=== PATIENT | male | born 1990 | race African-American/Black ===

== ENCOUNTER 2017-01-20 17:15 | Emergency (ER) | payer MEDICARE, OTHER ==
[~2017-01-20] VITALS: Ht 144.8 cm; Wt 95.0 kg
[~2017-01-20 17:15] MED LIST: ATOR10TA84 PO; DIVA500T69 PO; FERS325 PO; FLUO-191 PO; FLUT16H NASAL; FLUT1BLS IH; FOLI1 PO; METF500T4 PO; MIRALAX PO; MULT-29 PO; OMEP20 PO; QUET200T PO; THIA100 PO; VITAD1000 PO
[2017-01-20 17:37] LABS: GLUCOSE,POINT OF CARE 86 MG/DL (70-110)
[2017-01-20 20:13] VITALS: BP 118/61
== END 2017-01-20 20:24 | disposition home or self-care (01) ==
LOC: EMS 17:17
DX: F20.9 Schizophrenia, unspecified (principal); J45.909 Unspecified asthma, uncomplicated; E11.9 Type 2 diabetes mellitus without complications
CPT/HCPCS: 82962; 99284

== ENCOUNTER 2017-07-15 14:35 | Emergency (ER) | payer MEDICARE, OTHER ==
[~2017-07-15] VITALS: Ht 142.2 cm; Wt 63.6 kg
[~2017-07-15 14:35] MED LIST changes: +FERR-89 PO; -FERS325 PO
[2017-07-15 14:55] VITALS: BP 130/76
[2017-07-15 15:02] LABS: GLUCOSE,POINT OF CARE 122 MG/DL (70-110)
[2017-07-15] MEDS ORDERED: DSS100 PO (17:08)
[2017-07-15] MEDS ORDERED: LEVO25TA9 PO (17:08)
[2017-07-15] MEDS ORDERED: LORazepam 1 MG TABLET PO ONE (17:15)
== END 2017-07-15 17:32 | disposition home or self-care (01) ==
LOC: EMS 14:37
DX: F20.9 Schizophrenia, unspecified (principal)
CPT/HCPCS: 82962; 99284

== ENCOUNTER 2018-06-01 17:18 | Emergency (ER) | payer MEDICARE, OTHER ==
[~2018-06-01] VITALS: Ht 142.2 cm; Wt 56.8 kg
[~2018-06-01 17:18] MED LIST changes: +DSS100 PO; -FLUO-191 PO; -FLUT1BLS IH; -FOLI1 PO; +LEVO25TA9 PO; -METF500T4 PO; +METF500T6 PO; -MIRALAX PO; -MULT-29 PO; -THIA100 PO
[2018-06-01] MEDS ORDERED: FLUO-191 PO (17:30)
[2018-06-01] MEDS ORDERED: PALI117D IM (17:30)
[2018-06-01] MEDS ORDERED: BENZ0.5T44 PO (17:30)
[2018-06-01] MEDS ORDERED: EXEN2PEN IM (17:30)
[2018-06-01 17:43] LABS: GLUCOSE,POINT OF CARE 77 MG/DL (70-110)
[2018-06-01] MEDS ORDERED: GuaiFENesin/D-METHORPHAN [SUGAR-FREE] 200-20MG/10 ML SYRUP UDCUP PO ONE (20:00)
[2018-06-01] MEDS ORDERED: ACETAMINOPHEN 325 MG TABLET PO ONE (20:00)
[2018-06-01 20:39] VITALS: BP 131/72
== END 2018-06-01 21:20 | disposition home or self-care (01) ==
LOC: EMS 17:19
DX: J06.9 Acute upper respiratory infection, unspecified (principal); J45.909 Unspecified asthma, uncomplicated; E11.9 Type 2 diabetes mellitus without complications; F20.9 Schizophrenia, unspecified; F79 Unspecified intellectual disabilities; Z79.899 Other long term (current) drug therapy
CPT/HCPCS: 99283

== ENCOUNTER 2018-06-06 17:33 | Inpatient (IN) | payer MEDICARE, MEDICAID ==
[~2018-06-06] VITALS: Ht 142.2 cm; Wt 59.0 kg
[~2018-06-06 17:33] MED LIST changes: +BENZ0.5T44 PO; +EXEN2PEN IM; +FLUO-191 PO; -FLUT16H NASAL; -METF500T6 PO; +PALI117D IM; -VITAD1000 PO
[2018-06-06 19:04] LABS: BASOPHILS % (AUTO) 0.4 % (0.0-2.0); EOSINOPHILS % (AUTO) 0.9 % (1.0-6.0); GLUCOSE,POINT OF CARE 88 MG/DL (70-110); HEMATOCRIT 43.8 % (41-53); HEMOGLOBIN 15.1 g/dL (13.5-17.5); LYMPHOCYTES # (AUTO) 2.5 K/uL (1.0-4.8); LYMPHOCYTES % (AUTO) 44.7 % (22.0-44.0); MEAN CORPUSCULAR HEMOGLOBIN 33.8 pg (26.0-34.0); MEAN CORPUSCULAR HGB CONC 34.6 G/dL (31.0-37.0); MEAN CORPUSCULAR VOLUME 98 fL (80-100); MONOCYTES # (AUTO) 0.6 K/uL (0.1-1.0); MONOCYTES % (AUTO) 10.5 % (2.0-9.0); NEUTROPHILS # (AUTO) 2.4 K/uL (1.8-7.7); NEUTROPHILS % (AUTO) 43.5 % (40.0-70.0); PLATELET COUNT (AUTO) 164 K/uL (150-450); RED BLOOD CELL COUNT(AUTO) 4.47 MIL/uL (4.50-5.90); RED CELL DISTRIBUTION WIDTH 13.7 % (11.5-14.5)
[2018-06-06 19:15] LABS: ANION GAP 10 mmol/L (8-16); CALCIUM, TOTAL 9.6 mg/dL (8.8-10.5); CARBON DIOXIDE 26 mmol/L (22-29); CHLORIDE 104 mmol/L (98-107); CREATININE 1.06 mg/dL (0.60-1.30); GLOMERULAR FILTR. RATE CALC > 60 mL/min (>60); GLUCOSE,RANDOM 83 mg/dL (70-110); POTASSIUM 4.1 mmol/L (3.5-5.1); SODIUM SERUM 140 mmol/L (136-145); UREA NITROGEN, BLOOD 23 mg/dL (7-18)
[2018-06-06 19:28] LABS: ALANINE AMINOTRANSFERASE 55 U/L (12-78); ALBUMIN 3.8 g/dL (3.4-5.0); ALKALINE PHOSPHATASE 50 U/L (46-116); ASPARTATE AMINOTRANSFERASE 45 U/L (15-37); BILIRUBIN,TOTAL 0.3 mg/dL (0.1-1.0); TOTAL PROTEIN, SERUM 7.8 g/dL (6.4-8.2)
[2018-06-06 19:50] LABS: AMPHET/METH SCREEN,URINE NEGATIVE (NEGATIVE); BARBITURATE SCREEN, URINE NEGATIVE (NEGATIVE); BENZODIAZEPINES SCREEN,URINE NEGATIVE (NEGATIVE); CANNABINOID SCREEN,URINE NEGATIVE (NEGATIVE); COCAINE SCREEN,URINE NEGATIVE (NEGATIVE); METHADONE SCREEN, URINE NEGATIVE (NEGATIVE); OPIATE SCREEN,URINE NEGATIVE (NEGATIVE); PHENCYCLIDINE SCREEN,URINE NEGATIVE (NEGATIVE)
[2018-06-06 20:13] LABS: VALPROIC ACID 83 mcg/mL (50-100)
[2018-06-06] MEDS ORDERED: ZOLPIDEM TARTRATE 10 MG TABLET PO PRN (21:00)
[2018-06-06] MEDS ORDERED: HALOPERIDOL 5 MG TABLET PO PRN (21:00)
[2018-06-06 21:41] LABS: APPEARANCE,URINE CLEAR (CLEAR); BILIRUBIN,URINE NEGATIVE (NEGATIVE); GLUCOSE, URINE (UA) NEGATIVE (NEGATIVE); KETONES,URINE NEGATIVE (NEGATIVE); LEUKOCYTE ESTERASE ,URINE NEGATIVE (NEGATIVE); NITRATE,URINE NEGATIVE (NEGATIVE); OCCULT BLOOD,URINE NEGATIVE (NEGATIVE); PH,URINE 7.5 (5.0-8.0); PROTEIN,URINE NEGATIVE (NEGATIVE)
[2018-06-06 22:23] LABS: GLUCOMETER DEV NAME(LOC) BV2N3; GLUCOSE,POINT OF CARE 79 MG/DL (70-110)
[2018-06-06 22:28] VITALS: BP 109/68
[2018-06-06] MEDS ORDERED: PNEUMOCOCCAL VACCINE POLYVALENT 0.5 ML VIAL [PPSV23] IM ONE (22:30)
[2018-06-07 00:50] VITALS: BP 105/64
[2018-06-07 06:48] LABS: GLUCOMETER DEV NAME(LOC) BV2N3; GLUCOSE,POINT OF CARE 80 MG/DL (70-110)
[2018-06-07 08:14] VITALS: BP 116/77
[2018-06-07] MEDS: LORazepam 2 MG TABLET PO PRN (08:58)
[2018-06-07] MEDS ORDERED: CloNIDine HCL 0.1 MG TABLET PO PRN (09:15)
[2018-06-07] MEDS ORDERED: MAG HYDROX/AL HYDROX/SIMETH ES 30 ML SUSPENSION UDCUP PO PRN (09:15)
[2018-06-07] MEDS ORDERED: ALBUTEROL SULFATE HFA 90 MCG/PUFF 8 GM INHALER IH PRN (09:15)
[2018-06-07] MEDS ORDERED: PETROLATUM,WHITE 71 GM JELLY TP PRN (09:15)
[2018-06-07] MEDS ORDERED: MAGNESIUM HYDROXIDE SUSPENSION 30 ML UDCUP PO PRN (09:15)
[2018-06-07] MEDS ORDERED: BENZOCAINE/MENTHOL LOZENGE MM PRN (09:15)
[2018-06-07] MEDS ORDERED: LOPERAMIDE HCL 2 MG CAPSULE PO PRN (09:15)
[2018-06-07] MEDS ORDERED: IBUPROFEN 600 MG TABLET PO PRN (09:15)
[2018-06-07] MEDS ORDERED: ACETAMINOPHEN 325 MG TABLET PO PRN (09:15)
[2018-06-07] MEDS ORDERED: ONDANSETRON HCL 4 MG TABLET PO PRN (09:15)
[2018-06-07] MEDS ORDERED: BACITRACIN 28.4 GM OINTMENT TP PRN (09:15)
[2018-06-07 09:25] LABS: CHOL/HDL RATIO 2.8 (4.2-7.3)
[2018-06-07] MEDS: OMEPRAZOLE 20 MG CAPSULE PO SCH (09:35)
[2018-06-07] MEDS: FLUoxetine HCL 20 MG CAPSULE PO SCH (13:13)
[2018-06-07 16:06] VITALS: BP 108/60
[2018-06-07] MEDS: QUEtiapine FUMARATE 300 MG TABLET PO SCH (20:40)
[2018-06-07] MEDS: DIVALPROEX SODIUM 500 MG ER TABLET PO SCH (20:40)
[2018-06-07] MEDS ORDERED: QUEtiapine FUMARATE 200 MG TABLET PO SCH (21:00)
[2018-06-08 01:36] VITALS: BP 111/64
[2018-06-08] MEDS: LEVOTHYROXINE SODIUM 25 MCG TABLET PO SCH (07:11)
[2018-06-08 08:33] VITALS: BP 109/67
[2018-06-08] MEDS: ATORVASTATIN CALCIUM 10 MG TABLET PO SCH (08:35)
[2018-06-08] MEDS: OMEPRAZOLE 20 MG CAPSULE PO SCH (08:35)
[2018-06-08] MEDS: DOCUSATE SODIUM 100 MG CAPSULE PO SCH (08:35)
[2018-06-08] MEDS: FLUoxetine HCL 20 MG CAPSULE PO SCH (08:36)
[2018-06-08 16:11] VITALS: BP 114/80
[2018-06-08] MEDS: QUEtiapine FUMARATE 300 MG TABLET PO SCH (20:36)
[2018-06-08] MEDS: DIVALPROEX SODIUM 500 MG ER TABLET PO SCH (20:36)
[2018-06-09 01:26] VITALS: BP 108/76
[2018-06-09] MEDS: LEVOTHYROXINE SODIUM 25 MCG TABLET PO SCH (06:42)
[2018-06-09 08:30] VITALS: BP 103/72
[2018-06-09] MEDS: DOCUSATE SODIUM 100 MG CAPSULE PO SCH (08:54)
[2018-06-09] MEDS: ATORVASTATIN CALCIUM 10 MG TABLET PO SCH (08:54)
[2018-06-09] MEDS: OMEPRAZOLE 20 MG CAPSULE PO SCH (08:54)
[2018-06-09] MEDS: FLUoxetine HCL 20 MG CAPSULE PO SCH (08:54)
[2018-06-09] MEDS ORDERED: HALOPERIDOL LACTATE 5 MG/ML VIAL ONE (13:19)
[2018-06-09] MEDS ORDERED: DiphenhydrAMINE HCL 50 MG/ML VIAL ONE (13:19)
[2018-06-09] MEDS ORDERED: LORazepam 2 MG/ML VIAL ONE (13:19)
[2018-06-09 16:21] VITALS: BP 116/60
[2018-06-09 19:07] VITALS: BP 119/72
[2018-06-09] MEDS: DIVALPROEX SODIUM 500 MG ER TABLET PO SCH (20:38)
[2018-06-09] MEDS: QUEtiapine FUMARATE 300 MG TABLET PO SCH (20:38)
[2018-06-10 00:05] VITALS: BP 105/62
[2018-06-10] MEDS: LEVOTHYROXINE SODIUM 25 MCG TABLET PO SCH (06:41)
[2018-06-10 08:30] VITALS: BP 114/74
[2018-06-10] MEDS: FLUoxetine HCL 20 MG CAPSULE PO SCH (08:37)
[2018-06-10] MEDS: ATORVASTATIN CALCIUM 10 MG TABLET PO SCH (08:37)
[2018-06-10] MEDS: DOCUSATE SODIUM 100 MG CAPSULE PO SCH (08:37)
[2018-06-10] MEDS: OMEPRAZOLE 20 MG CAPSULE PO SCH (08:37)
[2018-06-10 16:05] VITALS: BP 114/73
[2018-06-10] MEDS: DIVALPROEX SODIUM 500 MG ER TABLET PO SCH (20:02)
[2018-06-10] MEDS: QUEtiapine FUMARATE 300 MG TABLET PO SCH (20:02)
[2018-06-11] MEDS: LEVOTHYROXINE SODIUM 25 MCG TABLET PO SCH (06:05)
[2018-06-11 06:53] VITALS: BP 109/63
[2018-06-11 08:16] VITALS: BP 102/61
[2018-06-11] MEDS: DOCUSATE SODIUM 100 MG CAPSULE PO SCH (08:48)
[2018-06-11] MEDS: ATORVASTATIN CALCIUM 10 MG TABLET PO SCH (08:48)
[2018-06-11] MEDS: FLUoxetine HCL 20 MG CAPSULE PO SCH (08:48)
[2018-06-11] MEDS: OMEPRAZOLE 20 MG CAPSULE PO SCH (08:48)
[2018-06-11 16:00] VITALS: BP 120/66
[2018-06-11 20:08] LABS: GLUCOMETER DEV NAME(LOC) BV2N3; GLUCOSE,POINT OF CARE 128 MG/DL (70-110)
[2018-06-11] MEDS: QUEtiapine FUMARATE 300 MG TABLET PO SCH (20:34)
[2018-06-11] MEDS: DIVALPROEX SODIUM 500 MG ER TABLET PO SCH (20:34)
[2018-06-12 02:45] VITALS: BP 122/78
[2018-06-12] MEDS: LEVOTHYROXINE SODIUM 25 MCG TABLET PO SCH (06:49)
[2018-06-12] MEDS: FLUoxetine HCL 20 MG CAPSULE PO SCH (08:19)
[2018-06-12] MEDS: DOCUSATE SODIUM 100 MG CAPSULE PO SCH (08:19)
[2018-06-12] MEDS: ATORVASTATIN CALCIUM 10 MG TABLET PO SCH (08:19)
[2018-06-12] MEDS: OMEPRAZOLE 20 MG CAPSULE PO SCH (08:19)
[2018-06-12 09:11] VITALS: BP 105/68
[2018-06-12 09:12] LABS: ALANINE AMINOTRANSFERASE 37 U/L (12-78); ALBUMIN 3.1 g/dL (3.4-5.0); ALKALINE PHOSPHATASE 44 U/L (46-116); ANION GAP 8 mmol/L (8-16); ASPARTATE AMINOTRANSFERASE 25 U/L (15-37); BILIRUBIN,TOTAL 0.2 mg/dL (0.1-1.0); CALCIUM, TOTAL 8.8 mg/dL (8.8-10.5); CARBON DIOXIDE 28 mmol/L (22-29); CHLORIDE 107 mmol/L (98-107); GLOMERULAR FILTR. RATE CALC > 60 mL/min (>60); GLUCOSE,RANDOM 110 mg/dL (70-110); POTASSIUM 4.4 mmol/L (3.5-5.1); SODIUM SERUM 143 mmol/L (136-145); TOTAL PROTEIN, SERUM 6.3 g/dL (6.4-8.2); UREA NITROGEN, BLOOD 10 mg/dL (7-18)
[2018-06-12] MEDS: LORazepam 2 MG TABLET PO PRN (16:13)
[2018-06-12 16:18] VITALS: BP 116/78
[2018-06-12] MEDS: DIVALPROEX SODIUM 500 MG ER TABLET PO SCH (20:36)
[2018-06-12] MEDS: QUEtiapine FUMARATE 300 MG TABLET PO SCH (20:36)
[2018-06-13 06:07] VITALS: BP 112/66
[2018-06-13] MEDS: LEVOTHYROXINE SODIUM 25 MCG TABLET PO SCH (06:58)
[2018-06-13 08:18] VITALS: BP 125/61
[2018-06-13] MEDS: ATORVASTATIN CALCIUM 10 MG TABLET PO SCH (09:19)
[2018-06-13] MEDS: OMEPRAZOLE 20 MG CAPSULE PO SCH (09:19)
[2018-06-13] MEDS: DOCUSATE SODIUM 100 MG CAPSULE PO SCH (09:19)
[2018-06-13] MEDS: FLUoxetine HCL 20 MG CAPSULE PO SCH (09:19)
[2018-06-13] MEDS: LORazepam 2 MG TABLET PO PRN (14:41)
[2018-06-13 17:06] VITALS: BP 113/74
[2018-06-13] MEDS: DIVALPROEX SODIUM 500 MG ER TABLET PO SCH (20:30)
[2018-06-13] MEDS: QUEtiapine FUMARATE 300 MG TABLET PO SCH (20:30)
[2018-06-14 00:10] VITALS: BP 103/64
[2018-06-14] MEDS: LEVOTHYROXINE SODIUM 25 MCG TABLET PO SCH (06:38)
[2018-06-14] MEDS: ATORVASTATIN CALCIUM 10 MG TABLET PO SCH (08:14)
[2018-06-14] MEDS: OMEPRAZOLE 20 MG CAPSULE PO SCH (08:14)
[2018-06-14] MEDS: DOCUSATE SODIUM 100 MG CAPSULE PO SCH (08:14)
[2018-06-14] MEDS: FLUoxetine HCL 20 MG CAPSULE PO SCH (08:14)
[2018-06-14 08:31] VITALS: BP 120/89
[2018-06-14] MEDS: LORazepam 2 MG TABLET PO PRN (09:27)
[2018-06-14] MEDS ORDERED: GLUCAGON,HUMAN RECOMBINANT 1 MG VIAL IM PRN (11:45)
[2018-06-14 16:06] VITALS: BP 120/74
[2018-06-14 16:24] LABS: GLUCOMETER DEV NAME(LOC) BV2N3; GLUCOSE,POINT OF CARE 84 MG/DL (70-110)
[2018-06-14] MEDS: MetFORMIN HCL 500 MG TABLET PO SCH (16:33)
[2018-06-14 20:31] LABS: GLUCOMETER DEV NAME(LOC) BV2N3; GLUCOSE,POINT OF CARE 171 MG/DL (70-110)
[2018-06-14] MEDS: QUEtiapine FUMARATE 300 MG TABLET PO SCH (20:42)
[2018-06-14] MEDS: DIVALPROEX SODIUM 500 MG ER TABLET PO SCH (20:42)
[2018-06-14] MEDS: INSULIN LISPRO 100 UNITS/ML SQ PRN (20:43)
[2018-06-15 01:39] VITALS: BP 102/65
[2018-06-15] MEDS: LEVOTHYROXINE SODIUM 25 MCG TABLET PO SCH (06:24)
[2018-06-15] MEDS: MetFORMIN HCL 500 MG TABLET PO SCH ×2 (06:24→16:37)
[2018-06-15 06:51] LABS: GLUCOMETER DEV NAME(LOC) BV2N3; GLUCOSE,POINT OF CARE 72 MG/DL (70-110)
[2018-06-15 08:22] VITALS: BP 120/61
[2018-06-15] MEDS: DOCUSATE SODIUM 100 MG CAPSULE PO SCH (08:35)
[2018-06-15] MEDS: ATORVASTATIN CALCIUM 10 MG TABLET PO SCH (08:35)
[2018-06-15] MEDS: OMEPRAZOLE 20 MG CAPSULE PO SCH (08:35)
[2018-06-15] MEDS: FLUoxetine HCL 20 MG CAPSULE PO SCH (08:35)
[2018-06-15 11:32] LABS: GLUCOMETER DEV NAME(LOC) BV2N3; GLUCOSE,POINT OF CARE 102 MG/DL (70-110)
[2018-06-15 16:11] VITALS: BP 108/68
[2018-06-15 16:23] LABS: GLUCOMETER DEV NAME(LOC) BV2N3; GLUCOSE,POINT OF CARE 81 MG/DL (70-110)
[2018-06-15 20:18] LABS: GLUCOMETER DEV NAME(LOC) BV2N3; GLUCOSE,POINT OF CARE 87 MG/DL (70-110)
[2018-06-15] MEDS: DIVALPROEX SODIUM 500 MG ER TABLET PO SCH (20:45)
[2018-06-15] MEDS: QUEtiapine FUMARATE 300 MG TABLET PO SCH (20:45)
[2018-06-16] MEDS: MetFORMIN HCL 500 MG TABLET PO SCH ×2 (06:03→16:36)
[2018-06-16] MEDS: LEVOTHYROXINE SODIUM 25 MCG TABLET PO SCH (06:03)
[2018-06-16 06:24] VITALS: BP 104/60
[2018-06-16 06:35] LABS: GLUCOMETER DEV NAME(LOC) BV2N3; GLUCOSE,POINT OF CARE 65 MG/DL (70-110)
[2018-06-16] MEDS: DOCUSATE SODIUM 100 MG CAPSULE PO SCH (08:11)
[2018-06-16] MEDS: OMEPRAZOLE 20 MG CAPSULE PO SCH (08:11)
[2018-06-16] MEDS: ATORVASTATIN CALCIUM 10 MG TABLET PO SCH (08:11)
[2018-06-16] MEDS: FLUoxetine HCL 20 MG CAPSULE PO SCH (08:11)
[2018-06-16 08:15] VITALS: BP 120/75
[2018-06-16] MEDS: INSULIN LISPRO 100 UNITS/ML SQ PRN (10:59)
[2018-06-16 11:08] LABS: GLUCOMETER DEV NAME(LOC) BV2N3; GLUCOSE,POINT OF CARE 180 MG/DL (70-110)
[2018-06-16 16:03] VITALS: BP 107/73
[2018-06-16 16:44] LABS: GLUCOMETER DEV NAME(LOC) BV2N3; GLUCOSE,POINT OF CARE 109 MG/DL (70-110)
[2018-06-16] MEDS: DIVALPROEX SODIUM 500 MG ER TABLET PO SCH (20:12)
[2018-06-16] MEDS: QUEtiapine FUMARATE 300 MG TABLET PO SCH (20:12)
[2018-06-16 20:34] LABS: GLUCOMETER DEV NAME(LOC) BV2N3; GLUCOSE,POINT OF CARE 135 MG/DL (70-110)
[2018-06-17 06:29] LABS: GLUCOMETER DEV NAME(LOC) BV2N3; GLUCOSE,POINT OF CARE 70 MG/DL (70-110)
[2018-06-17 06:30] VITALS: BP 110/68
[2018-06-17] MEDS: MetFORMIN HCL 500 MG TABLET PO SCH ×2 (06:57→16:40)
[2018-06-17] MEDS: LEVOTHYROXINE SODIUM 25 MCG TABLET PO SCH (06:57)
[2018-06-17 08:11] VITALS: BP 125/74
[2018-06-17] MEDS: DOCUSATE SODIUM 100 MG CAPSULE PO SCH (08:14)
[2018-06-17] MEDS: FLUoxetine HCL 20 MG CAPSULE PO SCH (08:14)
[2018-06-17] MEDS: ATORVASTATIN CALCIUM 10 MG TABLET PO SCH (08:14)
[2018-06-17] MEDS: OMEPRAZOLE 20 MG CAPSULE PO SCH (08:14)
[2018-06-17 11:14] LABS: GLUCOMETER DEV NAME(LOC) BV2N3; GLUCOSE,POINT OF CARE 116 MG/DL (70-110)
[2018-06-17 16:11] VITALS: BP 110/61
[2018-06-17 16:53] LABS: GLUCOMETER DEV NAME(LOC) BV2N3; GLUCOSE,POINT OF CARE 106 MG/DL (70-110)
[2018-06-17] MEDS: DIVALPROEX SODIUM 500 MG ER TABLET PO SCH (20:03)
[2018-06-17] MEDS: QUEtiapine FUMARATE 300 MG TABLET PO SCH (20:03)
[2018-06-17 20:58] LABS: GLUCOMETER DEV NAME(LOC) BV2N3; GLUCOSE,POINT OF CARE 116 MG/DL (70-110)
[2018-06-18 05:37] VITALS: BP 118/65
[2018-06-18 06:14] LABS: GLUCOMETER DEV NAME(LOC) BV2N3; GLUCOSE,POINT OF CARE 61 MG/DL (70-110)
[2018-06-18] MEDS: LEVOTHYROXINE SODIUM 25 MCG TABLET PO SCH (06:45)
[2018-06-18 07:03] LABS: GLUCOMETER DEV NAME(LOC) BV2N3; GLUCOSE,POINT OF CARE 81 MG/DL (70-110)
[2018-06-18] MEDS: MetFORMIN HCL 500 MG TABLET PO SCH ×2 (07:17→16:34)
[2018-06-18 08:22] VITALS: BP 120/75
[2018-06-18] MEDS: FLUoxetine HCL 20 MG CAPSULE PO SCH (08:25)
[2018-06-18] MEDS: OMEPRAZOLE 20 MG CAPSULE PO SCH (08:25)
[2018-06-18] MEDS: DOCUSATE SODIUM 100 MG CAPSULE PO SCH (08:25)
[2018-06-18] MEDS: ATORVASTATIN CALCIUM 10 MG TABLET PO SCH (08:25)
[2018-06-18 11:09] LABS: GLUCOMETER DEV NAME(LOC) BV2N3; GLUCOSE,POINT OF CARE 92 MG/DL (70-110)
[2018-06-18 16:09] VITALS: BP 117/65
[2018-06-18 16:24] LABS: GLUCOMETER DEV NAME(LOC) BV2N3; GLUCOSE,POINT OF CARE 103 MG/DL (70-110)
[2018-06-18] MEDS ORDERED: METF500T6 PO (17:48)
[2018-06-18] MEDS ORDERED: OMEP20 PO (17:48)
== END 2018-06-18 20:32 | disposition home or self-care (01) | DRG 885 ==
LOC: EMS 17:34 → B2X 21:15
PROVIDERS: ADMIT Psychiatry & Neurology Psychiatry; ATTEND Psychiatry & Neurology Psychiatry
DX: F25.9 Schizoaffective disorder, unspecified (principal); R45.851 Suicidal ideations; Z28.21 Immunization not carried out because of patient refusal; F32.9 Major depressive disorder, single episode, unspecified; J45.909 Unspecified asthma, uncomplicated; E11.9 Type 2 diabetes mellitus without complications; G47.00 Insomnia, unspecified; K21.9 Gastro-esophageal reflux disease without esophagitis; K59.00 Constipation, unspecified; I10 Essential (primary) hypertension; G40.909 Epilepsy, unspecified, not intractable, without status epilepticus; E78.5 Hyperlipidemia, unspecified; E03.9 Hypothyroidism, unspecified; Z79.2 Long term (current) use of antibiotics; Z79.4 Long term (current) use of insulin; E55.9 Vitamin D deficiency, unspecified
CPT/HCPCS: 87081; 99285; G0480; J1200; J1630; J2060

== ENCOUNTER 2018-06-24 22:31 | Inpatient (IN) | payer MEDICARE, MEDICAID ==
[~2018-06-24] VITALS: Ht 142.2 cm; Wt 60.3 kg
[~2018-06-24 22:31] MED LIST changes: -BENZ0.5T44 PO; -EXEN2PEN IM; -FERR-89 PO; +METF-960 PO; -PALI117D IM
[2018-06-24 23:15] LABS: BASOPHILS % (AUTO) 0.5 % (0.0-2.0); EOSINOPHILS % (AUTO) 0.8 % (1.0-6.0); HEMATOCRIT 38.4 % (41-53); HEMOGLOBIN 13.1 g/dL (13.5-17.5); LYMPHOCYTES % (AUTO) 53.8 % (22.0-44.0); MEAN CORPUSCULAR HEMOGLOBIN 33.3 pg (26.0-34.0); MEAN CORPUSCULAR HGB CONC 34.2 G/dL (31.0-37.0); MEAN CORPUSCULAR VOLUME 98 fL (80-100); MONOCYTES # (AUTO) 0.7 K/uL (0.1-1.0); MONOCYTES % (AUTO) 12.2 % (2.0-9.0); NEUTROPHILS # (AUTO) 1.8 K/uL (1.8-7.7); NEUTROPHILS % (AUTO) 32.7 % (40.0-70.0); PLATELET COUNT (AUTO) 163 K/uL (150-450); RED BLOOD CELL COUNT(AUTO) 3.94 MIL/uL (4.50-5.90); RED CELL DISTRIBUTION WIDTH 13.3 % (11.5-14.5)
[2018-06-24 23:25] LABS: ANION GAP 10 mmol/L (8-16); CALCIUM, TOTAL 10.4 mg/dL (8.8-10.5); CARBON DIOXIDE 27 mmol/L (22-29); CHLORIDE 103 mmol/L (98-107); CREATININE 0.93 mg/dL (0.60-1.30); GLOMERULAR FILTR. RATE CALC > 60 mL/min (>60); GLUCOSE,RANDOM 77 mg/dL (70-110); POTASSIUM 3.5 mmol/L (3.5-5.1); SODIUM SERUM 140 mmol/L (136-145); UREA NITROGEN, BLOOD 16 mg/dL (7-18)
[2018-06-24 23:28] LABS: GLUCOSE,POINT OF CARE 80 MG/DL (70-110)
[2018-06-24 23:30] LABS: ALANINE AMINOTRANSFERASE 38 U/L (12-78); ALBUMIN 3.4 g/dL (3.4-5.0); ALKALINE PHOSPHATASE 42 U/L (46-116); ASPARTATE AMINOTRANSFERASE 36 U/L (15-37); BILIRUBIN,TOTAL 0.3 mg/dL (0.1-1.0)
[2018-06-25 01:54] LABS: AMPHET/METH SCREEN,URINE NEGATIVE (NEGATIVE); BARBITURATE SCREEN, URINE NEGATIVE (NEGATIVE); BENZODIAZEPINES SCREEN,URINE NEGATIVE (NEGATIVE); CANNABINOID SCREEN,URINE NEGATIVE (NEGATIVE); COCAINE SCREEN,URINE NEGATIVE (NEGATIVE); METHADONE SCREEN, URINE NEGATIVE (NEGATIVE); OPIATE SCREEN,URINE NEGATIVE (NEGATIVE)
[2018-06-25 01:59] LABS: PHENCYCLIDINE SCREEN,URINE NEGATIVE (NEGATIVE)
[2018-06-25] MEDS ORDERED: LORazepam 2 MG TABLET PO PRN (02:30)
[2018-06-25] MEDS ORDERED: ZOLPIDEM TARTRATE 10 MG TABLET PO PRN (02:30)
[2018-06-25] MEDS ORDERED: HALOPERIDOL 5 MG TABLET PO PRN (02:30)
[2018-06-25 04:43] VITALS: BP 104/60
[2018-06-25] MEDS ORDERED: PNEUMOCOCCAL VACCINE POLYVALENT 0.5 ML VIAL [PPSV23] IM ONE (05:00)
[2018-06-25 06:24] LABS: GLUCOMETER DEV NAME(LOC) BV2S 2; GLUCOSE,POINT OF CARE 70 MG/DL (70-110)
[2018-06-25 09:01] VITALS: BP 111/68
[2018-06-25 11:25] LABS: GLUCOMETER DEV NAME(LOC) BV2S 2; GLUCOSE,POINT OF CARE 128 MG/DL (70-110)
[2018-06-25] MEDS ORDERED: BACITRACIN 28.4 GM OINTMENT TP PRN (12:30)
[2018-06-25] MEDS ORDERED: PETROLATUM,WHITE 71 GM JELLY TP PRN (12:30)
[2018-06-25] MEDS ORDERED: ALBUTEROL SULFATE HFA 90 MCG/PUFF 8 GM INHALER IH PRN (12:30)
[2018-06-25] MEDS ORDERED: IBUPROFEN 600 MG TABLET PO PRN (12:30)
[2018-06-25] MEDS ORDERED: ACETAMINOPHEN 325 MG TABLET PO PRN (12:30)
[2018-06-25] MEDS ORDERED: LOPERAMIDE HCL 2 MG CAPSULE PO PRN (12:30)
[2018-06-25] MEDS ORDERED: BENZOCAINE/MENTHOL LOZENGE MM PRN (12:30)
[2018-06-25] MEDS ORDERED: GLUCAGON,HUMAN RECOMBINANT 1 MG VIAL IM PRN (12:30)
[2018-06-25] MEDS ORDERED: MAGNESIUM HYDROXIDE SUSPENSION 30 ML UDCUP PO PRN (12:30)
[2018-06-25] MEDS ORDERED: MAG HYDROX/AL HYDROX/SIMETH ES 30 ML SUSPENSION UDCUP PO PRN (12:30)
[2018-06-25] MEDS ORDERED: CloNIDine HCL 0.1 MG TABLET PO PRN (12:30)
[2018-06-25] MEDS ORDERED: INSULIN LISPRO 100 UNITS/ML SQ PRN (12:30)
[2018-06-25] MEDS ORDERED: ONDANSETRON HCL 4 MG TABLET PO PRN (12:30)
[2018-06-25] MEDS ORDERED: QUET300T2 PO (12:36)
[2018-06-25] MEDS: ATORVASTATIN CALCIUM 10 MG TABLET PO SCH (13:16)
[2018-06-25 16:12] VITALS: BP 116/80
[2018-06-25 16:58] LABS: GLUCOMETER DEV NAME(LOC) BV2S 2; GLUCOSE,POINT OF CARE 86 MG/DL (70-110)
[2018-06-25] MEDS: MetFORMIN HCL 500 MG TABLET PO SCH (17:02)
[2018-06-25] MEDS: DIVALPROEX SODIUM 500 MG ER TABLET PO SCH (20:50)
[2018-06-25] MEDS: QUEtiapine FUMARATE 300 MG TABLET PO SCH (20:50)
[2018-06-25 21:09] LABS: GLUCOMETER DEV NAME(LOC) BV2S 2; GLUCOSE,POINT OF CARE 98 MG/DL (70-110)
[2018-06-26 05:57] VITALS: BP 120/82
[2018-06-26 06:24] LABS: GLUCOMETER DEV NAME(LOC) BV2S 2; GLUCOSE,POINT OF CARE 73 MG/DL (70-110)
[2018-06-26] MEDS: LEVOTHYROXINE SODIUM 25 MCG TABLET PO SCH (06:47)
[2018-06-26] MEDS: MetFORMIN HCL 500 MG TABLET PO SCH ×2 (06:48→16:17)
[2018-06-26 08:37] VITALS: BP 104/64
[2018-06-26] MEDS: FLUoxetine HCL 20 MG CAPSULE PO SCH (08:48)
[2018-06-26] MEDS: DOCUSATE SODIUM 100 MG CAPSULE PO SCH (08:48)
[2018-06-26] MEDS: ATORVASTATIN CALCIUM 10 MG TABLET PO SCH (08:48)
[2018-06-26] MEDS: OMEPRAZOLE 20 MG CAPSULE PO SCH (08:48)
[2018-06-26 11:13] LABS: GLUCOMETER DEV NAME(LOC) BV2S 2; GLUCOSE,POINT OF CARE 125 MG/DL (70-110)
[2018-06-26 16:34] VITALS: BP 112/71
[2018-06-26 16:34] LABS: GLUCOMETER DEV NAME(LOC) BV2S 2; GLUCOSE,POINT OF CARE 93 MG/DL (70-110)
[2018-06-26] MEDS: DIVALPROEX SODIUM 500 MG ER TABLET PO SCH (20:03)
[2018-06-26] MEDS: QUEtiapine FUMARATE 300 MG TABLET PO SCH (20:04)
[2018-06-26 20:59] LABS: GLUCOMETER DEV NAME(LOC) BV2S 2; GLUCOSE,POINT OF CARE 115 MG/DL (70-110)
[2018-06-27 06:28] VITALS: BP 101/62
[2018-06-27] MEDS: LEVOTHYROXINE SODIUM 25 MCG TABLET PO SCH (06:45)
[2018-06-27] MEDS: MetFORMIN HCL 500 MG TABLET PO SCH (06:45)
[2018-06-27 06:59] LABS: GLUCOMETER DEV NAME(LOC) BV2S 2; GLUCOSE,POINT OF CARE 101 MG/DL (70-110)
[2018-06-27] MEDS: ATORVASTATIN CALCIUM 10 MG TABLET PO SCH (08:25)
[2018-06-27] MEDS: FLUoxetine HCL 20 MG CAPSULE PO SCH (08:25)
[2018-06-27] MEDS: OMEPRAZOLE 20 MG CAPSULE PO SCH (08:25)
[2018-06-27] MEDS: DOCUSATE SODIUM 100 MG CAPSULE PO SCH (08:25)
[2018-06-27 09:10] VITALS: BP 103/71
[2018-06-27 09:24] LABS: CHOL/HDL RATIO 3.2 (4.2-7.3)
[2018-06-27 09:31] LABS: HEMOGLOBIN A1C 4.9 % (4.5-6.2)
[2018-06-27 15:08] LABS: GLUCOMETER DEV NAME(LOC) BV2S 2; GLUCOSE,POINT OF CARE 112 MG/DL (70-110)
== END 2018-06-27 13:23 | disposition home or self-care (01) | DRG 885 ==
LOC: EMS 22:32 → B2S 06-25 03:00
PROVIDERS: ADMIT Psychiatry & Neurology Child & Adolescent Psychiatry; ATTEND Psychiatry & Neurology Psychiatry
DX: F20.9 Schizophrenia, unspecified (principal); J45.909 Unspecified asthma, uncomplicated; E11.9 Type 2 diabetes mellitus without complications; E03.9 Hypothyroidism, unspecified; E55.9 Vitamin D deficiency, unspecified; E78.5 Hyperlipidemia, unspecified; G40.909 Epilepsy, unspecified, not intractable, without status epilepticus; G47.00 Insomnia, unspecified; I10 Essential (primary) hypertension; K21.9 Gastro-esophageal reflux disease without esophagitis; K59.00 Constipation, unspecified; Z79.899 Other long term (current) drug therapy
CPT/HCPCS: 83036; 87081; 99285; G0480

== ENCOUNTER 2018-06-28 21:06 | Inpatient (IN) | payer MEDICARE, MEDICAID ==
[~2018-06-28] VITALS: Ht 142.2 cm; Wt 64.9 kg
[~2018-06-28 21:06] MED LIST changes: -DSS100 PO; -OMEP20 PO; -QUET200T PO; +QUET300T2 PO
[2018-06-28 22:57] LABS: BASOPHILS % (AUTO) 0.6 % (0.0-2.0); EOSINOPHILS % (AUTO) 0.7 % (1.0-6.0); HEMATOCRIT 39.8 % (41-53); HEMOGLOBIN 13.4 g/dL (13.5-17.5); LYMPHOCYTES # (AUTO) 2.4 K/uL (1.0-4.8); LYMPHOCYTES % (AUTO) 46.9 % (22.0-44.0); MEAN CORPUSCULAR HEMOGLOBIN 33.1 pg (26.0-34.0); MEAN CORPUSCULAR HGB CONC 33.7 G/dL (31.0-37.0); MEAN CORPUSCULAR VOLUME 98 fL (80-100); MONOCYTES # (AUTO) 0.5 K/uL (0.1-1.0); MONOCYTES % (AUTO) 9.4 % (2.0-9.0); NEUTROPHILS # (AUTO) 2.2 K/uL (1.8-7.7); NEUTROPHILS % (AUTO) 42.4 % (40.0-70.0); PLATELET COUNT (AUTO) 196 K/uL (150-450); RED BLOOD CELL COUNT(AUTO) 4.05 MIL/uL (4.50-5.90); RED CELL DISTRIBUTION WIDTH 13.7 % (11.5-14.5)
[2018-06-28 23:11] LABS: ANION GAP 8 mmol/L (8-16); CALCIUM, TOTAL 9.5 mg/dL (8.8-10.5); CARBON DIOXIDE 27 mmol/L (22-29); CHLORIDE 106 mmol/L (98-107); CREATININE 0.91 mg/dL (0.60-1.30); GLOMERULAR FILTR. RATE CALC > 60 mL/min (>60); GLUCOSE,RANDOM 83 mg/dL (70-110); POTASSIUM 4.2 mmol/L (3.5-5.1); SODIUM SERUM 141 mmol/L (136-145); UREA NITROGEN, BLOOD 16 mg/dL (7-18)
[2018-06-28 23:17] LABS: ALANINE AMINOTRANSFERASE 31 U/L (12-78); ALBUMIN 3.4 g/dL (3.4-5.0); ALKALINE PHOSPHATASE 52 U/L (46-116); ASPARTATE AMINOTRANSFERASE 24 U/L (15-37); BILIRUBIN,TOTAL 0.2 mg/dL (0.1-1.0); TOTAL PROTEIN, SERUM 7.1 g/dL (6.4-8.2)
[2018-06-29 00:35] LABS: AMPHET/METH SCREEN,URINE NEGATIVE (NEGATIVE); BARBITURATE SCREEN, URINE NEGATIVE (NEGATIVE); BENZODIAZEPINES SCREEN,URINE NEGATIVE (NEGATIVE); CANNABINOID SCREEN,URINE POSITIVE (NEGATIVE); COCAINE SCREEN,URINE NEGATIVE (NEGATIVE); METHADONE SCREEN, URINE NEGATIVE (NEGATIVE); OPIATE SCREEN,URINE NEGATIVE (NEGATIVE)
[2018-06-29 00:38] LABS: PHENCYCLIDINE SCREEN,URINE NEGATIVE (NEGATIVE)
[2018-06-29] MEDS ORDERED: HALOPERIDOL 5 MG TABLET PO PRN (02:45)
[2018-06-29] MEDS ORDERED: LORazepam 2 MG TABLET PO PRN (02:45)
[2018-06-29] MEDS ORDERED: ZOLPIDEM TARTRATE 10 MG TABLET PO PRN (02:45)
[2018-06-29] MEDS ORDERED: PNEUMOCOCCAL VACCINE POLYVALENT 0.5 ML VIAL [PPSV23] IM ONE (04:45)
[2018-06-29 05:27] VITALS: BP 112/84
[2018-06-29 05:58] LABS: GLUCOMETER DEV NAME(LOC) BV2N3; GLUCOSE,POINT OF CARE 88 MG/DL (70-110)
[2018-06-29 08:35] VITALS: BP 102/60
[2018-06-29] MEDS: FLUoxetine HCL 20 MG CAPSULE PO SCH (13:13)
[2018-06-29 16:05] VITALS: BP 109/68
[2018-06-29] MEDS ORDERED: ONDANSETRON HCL 4 MG TABLET PO PRN (18:15)
[2018-06-29] MEDS ORDERED: MAG HYDROX/AL HYDROX/SIMETH ES 30 ML SUSPENSION UDCUP PO PRN (18:15)
[2018-06-29] MEDS ORDERED: BACITRACIN 28.4 GM OINTMENT TP PRN (18:15)
[2018-06-29] MEDS ORDERED: MAGNESIUM HYDROXIDE SUSPENSION 30 ML UDCUP PO PRN (18:15)
[2018-06-29] MEDS ORDERED: PETROLATUM,WHITE 71 GM JELLY TP PRN (18:15)
[2018-06-29] MEDS ORDERED: BENZOCAINE/MENTHOL LOZENGE MM PRN (18:15)
[2018-06-29] MEDS ORDERED: ALBUTEROL SULFATE HFA 90 MCG/PUFF 8 GM INHALER IH PRN (18:15)
[2018-06-29] MEDS ORDERED: GLUCAGON,HUMAN RECOMBINANT 1 MG VIAL IM PRN (18:15)
[2018-06-29] MEDS ORDERED: ACETAMINOPHEN 325 MG TABLET PO PRN (18:15)
[2018-06-29] MEDS ORDERED: CloNIDine HCL 0.1 MG TABLET PO PRN (18:15)
[2018-06-29] MEDS ORDERED: LOPERAMIDE HCL 2 MG CAPSULE PO PRN (18:15)
[2018-06-29] MEDS ORDERED: INSULIN LISPRO 100 UNITS/ML SQ PRN (18:15)
[2018-06-29 20:19] LABS: GLUCOMETER DEV NAME(LOC) BV2N3; GLUCOSE,POINT OF CARE 109 MG/DL (70-110)
[2018-06-29] MEDS: QUEtiapine FUMARATE 300 MG TABLET PO SCH (20:31)
[2018-06-29] MEDS: DIVALPROEX SODIUM 500 MG ER TABLET PO SCH (20:31)
[2018-06-29 21:39] VITALS: BP 110/73
[2018-06-29] MEDS: IBUPROFEN 600 MG TABLET PO PRN (21:39)
[2018-06-30] VITALS (10 sets, daily range): BP systolic 102–136; BP diastolic 62–79
[2018-06-30] MEDS: MetFORMIN HCL 500 MG TABLET PO SCH ×2 (06:38→16:58)
[2018-06-30] MEDS: LEVOTHYROXINE SODIUM 25 MCG TABLET PO SCH (06:38)
[2018-06-30 07:04] LABS: GLUCOMETER DEV NAME(LOC) BV2N3; GLUCOSE,POINT OF CARE 79 MG/DL (70-110)
[2018-06-30] MEDS: OMEPRAZOLE 20 MG CAPSULE PO SCH (08:10)
[2018-06-30] MEDS: ATORVASTATIN CALCIUM 10 MG TABLET PO SCH (08:10)
[2018-06-30] MEDS: FLUoxetine HCL 20 MG CAPSULE PO SCH (08:10)
[2018-06-30] MEDS: DOCUSATE SODIUM 100 MG CAPSULE PO SCH (08:10)
[2018-06-30 09:09] LABS: CHOL/HDL RATIO 3.1 (4.2-7.3)
[2018-06-30 11:29] LABS: GLUCOMETER DEV NAME(LOC) BV2N3; GLUCOSE,POINT OF CARE 86 MG/DL (70-110)
[2018-06-30 16:53] LABS: GLUCOMETER DEV NAME(LOC) BV2N3; GLUCOSE,POINT OF CARE 113 MG/DL (70-110)
[2018-06-30] MEDS: IBUPROFEN 600 MG TABLET PO PRN (16:58)
[2018-06-30] MEDS: DIVALPROEX SODIUM 500 MG ER TABLET PO SCH (20:11)
[2018-06-30] MEDS: QUEtiapine FUMARATE 300 MG TABLET PO SCH (20:11)
[2018-06-30 20:58] LABS: GLUCOMETER DEV NAME(LOC) BV2N3; GLUCOSE,POINT OF CARE 84 MG/DL (70-110)
[2018-07-01 06:20] VITALS: BP 100/61
[2018-07-01 06:25] VITALS: BP 100/61
[2018-07-01] MEDS: LEVOTHYROXINE SODIUM 25 MCG TABLET PO SCH (06:50)
[2018-07-01] MEDS: MetFORMIN HCL 500 MG TABLET PO SCH ×2 (06:51→17:00)
[2018-07-01 06:54] LABS: GLUCOMETER DEV NAME(LOC) BV2N3; GLUCOSE,POINT OF CARE 80 MG/DL (70-110)
[2018-07-01] MEDS: ATORVASTATIN CALCIUM 10 MG TABLET PO SCH (08:07)
[2018-07-01] MEDS: FLUoxetine HCL 20 MG CAPSULE PO SCH (08:07)
[2018-07-01] MEDS: OMEPRAZOLE 20 MG CAPSULE PO SCH (08:07)
[2018-07-01] MEDS: DOCUSATE SODIUM 100 MG CAPSULE PO SCH (08:07)
[2018-07-01 08:10] VITALS: BP 101/66
[2018-07-01 08:12] VITALS: BP 101/66
[2018-07-01 11:19] LABS: GLUCOMETER DEV NAME(LOC) BV2N3; GLUCOSE,POINT OF CARE 99 MG/DL (70-110)
[2018-07-01 16:01] VITALS: BP 124/64
[2018-07-01 16:41] VITALS: BP 124/64
[2018-07-01 16:49] LABS: GLUCOMETER DEV NAME(LOC) BV2N3; GLUCOSE,POINT OF CARE 79 MG/DL (70-110)
[2018-07-01] MEDS: DIVALPROEX SODIUM 500 MG ER TABLET PO SCH (20:06)
[2018-07-01] MEDS: QUEtiapine FUMARATE 300 MG TABLET PO SCH (20:06)
[2018-07-01 20:49] LABS: GLUCOMETER DEV NAME(LOC) BV2N3; GLUCOSE,POINT OF CARE 107 MG/DL (70-110)
[2018-07-02 06:03] LABS: GLUCOMETER DEV NAME(LOC) BV2N3; GLUCOSE,POINT OF CARE 73 MG/DL (70-110)
[2018-07-02 06:19] VITALS: BP 102/73
[2018-07-02] MEDS: LEVOTHYROXINE SODIUM 25 MCG TABLET PO SCH (06:22)
[2018-07-02] MEDS: MetFORMIN HCL 500 MG TABLET PO SCH ×2 (06:22→16:32)
[2018-07-02 08:02] VITALS: BP 100/53
[2018-07-02] MEDS: DOCUSATE SODIUM 100 MG CAPSULE PO SCH (08:41)
[2018-07-02] MEDS: OMEPRAZOLE 20 MG CAPSULE PO SCH (08:41)
[2018-07-02] MEDS: FLUoxetine HCL 20 MG CAPSULE PO SCH (08:41)
[2018-07-02] MEDS: ATORVASTATIN CALCIUM 10 MG TABLET PO SCH (08:41)
[2018-07-02 11:29] LABS: GLUCOMETER DEV NAME(LOC) BV2N3; GLUCOSE,POINT OF CARE 81 MG/DL (70-110)
[2018-07-02 16:03] VITALS: BP 106/64
[2018-07-02 16:24] LABS: GLUCOMETER DEV NAME(LOC) BV2N3; GLUCOSE,POINT OF CARE 121 MG/DL (70-110)
[2018-07-02 19:31] VITALS: BP 115/68
[2018-07-02] MEDS: IBUPROFEN 600 MG TABLET PO PRN (19:31)
[2018-07-02 20:24] LABS: GLUCOMETER DEV NAME(LOC) BV2N3; GLUCOSE,POINT OF CARE 90 MG/DL (70-110)
[2018-07-02] MEDS: QUEtiapine FUMARATE 300 MG TABLET PO SCH (20:31)
[2018-07-02] MEDS: DIVALPROEX SODIUM 500 MG ER TABLET PO SCH (20:31)
[2018-07-03] MEDS: LEVOTHYROXINE SODIUM 25 MCG TABLET PO SCH (06:10)
[2018-07-03] MEDS: MetFORMIN HCL 500 MG TABLET PO SCH (06:10)
[2018-07-03 06:54] LABS: GLUCOMETER DEV NAME(LOC) BV2N3; GLUCOSE,POINT OF CARE 59 MG/DL (70-110)
[2018-07-03 06:54] LABS: GLUCOMETER DEV NAME(LOC) BV2N3; GLUCOSE,POINT OF CARE 78 MG/DL (70-110)
[2018-07-03 08:15] VITALS: BP 121/76
[2018-07-03] MEDS: OMEPRAZOLE 20 MG CAPSULE PO SCH (08:26)
[2018-07-03] MEDS: FLUoxetine HCL 20 MG CAPSULE PO SCH (08:26)
[2018-07-03] MEDS: ATORVASTATIN CALCIUM 10 MG TABLET PO SCH (08:26)
[2018-07-03] MEDS: DOCUSATE SODIUM 100 MG CAPSULE PO SCH (08:26)
[2018-07-03 11:09] LABS: GLUCOMETER DEV NAME(LOC) BV2N3; GLUCOSE,POINT OF CARE 103 MG/DL (70-110)
[2018-07-03 16:01] VITALS: BP 128/64
[2018-07-03 16:34] LABS: GLUCOMETER DEV NAME(LOC) BV2N3; GLUCOSE,POINT OF CARE 92 MG/DL (70-110)
[2018-07-03 20:27] LABS: GLUCOMETER DEV NAME(LOC) BV2N3; GLUCOSE,POINT OF CARE 105 MG/DL (70-110)
[2018-07-03] MEDS: DIVALPROEX SODIUM 500 MG ER TABLET PO SCH (20:47)
[2018-07-03] MEDS: QUEtiapine FUMARATE 300 MG TABLET PO SCH (20:47)
[2018-07-04] VITALS: BP 118/84
[2018-07-04] MEDS: LEVOTHYROXINE SODIUM 25 MCG TABLET PO SCH (06:13)
[2018-07-04 06:29] LABS: GLUCOMETER DEV NAME(LOC) BV2N3; GLUCOSE,POINT OF CARE 75 MG/DL (70-110)
[2018-07-04] MEDS: DOCUSATE SODIUM 100 MG CAPSULE PO SCH (08:11)
[2018-07-04] MEDS: OMEPRAZOLE 20 MG CAPSULE PO SCH (08:11)
[2018-07-04] MEDS: FLUoxetine HCL 20 MG CAPSULE PO SCH (08:11)
[2018-07-04] MEDS: ATORVASTATIN CALCIUM 10 MG TABLET PO SCH (08:11)
[2018-07-04 08:17] VITALS: BP 125/72
[2018-07-04 11:04] LABS: GLUCOMETER DEV NAME(LOC) BV2N3; GLUCOSE,POINT OF CARE 89 MG/DL (70-110)
== END 2018-07-04 15:10 | disposition home or self-care (01) | DRG 885 ==
LOC: EMS 21:07 → B2S 06-29 02:20 → UNDOADMIN 06-29 02:20 → B2X 06-29 02:20
PROVIDERS: ADMIT Psychiatry & Neurology Child & Adolescent Psychiatry; ATTEND Psychiatry & Neurology Psychiatry
DX: F31.4 Bipolar disorder, current episode depressed, severe, without psychotic features (principal); F79 Unspecified intellectual disabilities; R45.851 Suicidal ideations; J45.909 Unspecified asthma, uncomplicated; E11.9 Type 2 diabetes mellitus without complications; F20.9 Schizophrenia, unspecified; G47.00 Insomnia, unspecified; I10 Essential (primary) hypertension; E78.5 Hyperlipidemia, unspecified; E03.9 Hypothyroidism, unspecified; F12.90 Cannabis use, unspecified, uncomplicated; E55.9 Vitamin D deficiency, unspecified; G40.909 Epilepsy, unspecified, not intractable, without status epilepticus; K21.9 Gastro-esophageal reflux disease without esophagitis; K59.00 Constipation, unspecified; Z79.84 Long term (current) use of oral hypoglycemic drugs; Z79.899 Other long term (current) drug therapy
CPT/HCPCS: 87081; 99285; G0480

== ENCOUNTER 2018-08-18 20:44 | Inpatient (IN) | payer MEDICARE, MEDICAID ==
[~2018-08-18] VITALS: Ht 142.2 cm; Wt 64.0 kg
[~2018-08-18 20:44] MED LIST changes: -METF-960 PO
[2018-08-18 21:18] LABS: GLUCOSE,POINT OF CARE 101 MG/DL (70-110)
[2018-08-18 21:25] LABS: BASOPHILS % (AUTO) 0.4 % (0.0-2.0); EOSINOPHILS % (AUTO) 0.8 % (1.0-6.0); HEMATOCRIT 46.4 % (41-53); HEMOGLOBIN 15.8 g/dL (13.5-17.5); LYMPHOCYTES # (AUTO) 2.7 K/uL (1.0-4.8); LYMPHOCYTES % (AUTO) 48.2 % (22.0-44.0); MEAN CORPUSCULAR HEMOGLOBIN 33.3 pg (26.0-34.0); MEAN CORPUSCULAR VOLUME 98 fL (80-100); MONOCYTES # (AUTO) 0.8 K/uL (0.1-1.0); MONOCYTES % (AUTO) 13.5 % (2.0-9.0); NEUTROPHILS # (AUTO) 2.1 K/uL (1.8-7.7); NEUTROPHILS % (AUTO) 37.1 % (40.0-70.0); PLATELET COUNT (AUTO) 188 K/uL (150-450); RED BLOOD CELL COUNT(AUTO) 4.74 MIL/uL (4.50-5.90); RED CELL DISTRIBUTION WIDTH 14.5 % (11.5-14.5)
[2018-08-18] MEDS ORDERED: FOLI1 PO (21:26)
[2018-08-18] MEDS ORDERED: FERR-89 PO (21:26)
[2018-08-18] MEDS ORDERED: QUET300T2 PO (21:26)
[2018-08-18] MEDS ORDERED: DSS100 PO (21:26)
[2018-08-18] MEDS ORDERED: MOME17N NASAL (21:26)
[2018-08-18] MEDS ORDERED: EXEN2VIA SQ (21:26)
[2018-08-18] MEDS ORDERED: PALI117D IM (21:26)
[2018-08-18] MEDS ORDERED: FLUO-191 PO (21:26)
[2018-08-18] MEDS ORDERED: OMEP20 PO (21:26)
[2018-08-18] MEDS ORDERED: VITAD1000 PO (21:26)
[2018-08-18 21:37] LABS: ANION GAP 6 mmol/L (8-16); CALCIUM, TOTAL 9.6 mg/dL (8.8-10.5); CARBON DIOXIDE 32 mmol/L (22-29); CHLORIDE 103 mmol/L (98-107); GLOMERULAR FILTR. RATE CALC > 60 mL/min (>60); GLUCOSE,RANDOM 82 mg/dL (70-110); POTASSIUM 3.6 mmol/L (3.5-5.1); SODIUM SERUM 141 mmol/L (136-145); UREA NITROGEN, BLOOD 15 mg/dL (7-18)
[2018-08-18 21:42] LABS: ALANINE AMINOTRANSFERASE 54 U/L (12-78); ALBUMIN 3.9 g/dL (3.4-5.0); ALKALINE PHOSPHATASE 67 U/L (46-116); ASPARTATE AMINOTRANSFERASE 44 U/L (15-37); BILIRUBIN,TOTAL 0.2 mg/dL (0.1-1.0); TOTAL PROTEIN, SERUM 8.2 g/dL (6.4-8.2); VALPROIC ACID 27 mcg/mL (50-100)
[2018-08-18 21:45] LABS: AMPHET/METH SCREEN,URINE NEGATIVE (NEGATIVE); BARBITURATE SCREEN, URINE NEGATIVE (NEGATIVE); BENZODIAZEPINES SCREEN,URINE NEGATIVE (NEGATIVE); CANNABINOID SCREEN,URINE NEGATIVE (NEGATIVE); COCAINE SCREEN,URINE NEGATIVE (NEGATIVE); METHADONE SCREEN, URINE NEGATIVE (NEGATIVE); OPIATE SCREEN,URINE NEGATIVE (NEGATIVE); PHENCYCLIDINE SCREEN,URINE NEGATIVE (NEGATIVE)
[2018-08-18] MEDS ORDERED: ZOLPIDEM TARTRATE 10 MG TABLET PO PRN (21:45)
[2018-08-18] MEDS ORDERED: HALOPERIDOL 5 MG TABLET PO PRN (21:45)
[2018-08-18] MEDS ORDERED: LORazepam 2 MG TABLET PO PRN (21:45)
[2018-08-18] MEDS ORDERED: LEVOTHYROXINE SODIUM 50 MCG TABLET PO ONE (22:30)
[2018-08-19 04:11] VITALS: BP 129/66
[2018-08-19] MEDS ORDERED: PNEUMOCOCCAL VACCINE POLYVALENT 0.5 ML VIAL [PPSV23] IM ONE (04:30)
[2018-08-19 05:40] LABS: APPEARANCE,URINE CLEAR (CLEAR); BILIRUBIN,URINE NEGATIVE (NEGATIVE); GLUCOSE, URINE (UA) NEGATIVE (NEGATIVE); KETONES,URINE TRACE mg/dL (NEGATIVE); LEUKOCYTE ESTERASE ,URINE NEGATIVE (NEGATIVE); NITRATE,URINE NEGATIVE (NEGATIVE); OCCULT BLOOD,URINE NEGATIVE (NEGATIVE)
[2018-08-19 05:58] LABS: GLUCOMETER DEV NAME(LOC) 3EI C; GLUCOSE,POINT OF CARE 75 MG/DL (70-110)
[2018-08-19 06:06] LABS: PROTEIN,URINE NEGATIVE (NEGATIVE)
[2018-08-19 07:04] LABS: CHOL/HDL RATIO 2.4 (4.2-7.3)
[2018-08-19] MEDS ORDERED: GuaiFENesin/D-METHORPHAN [SUGAR-FREE] 200-20MG/10 ML SYRUP UDCUP PO PRN (07:45)
[2018-08-19] MEDS ORDERED: ONDANSETRON HCL 4 MG TABLET PO PRN (07:45)
[2018-08-19] MEDS ORDERED: LOPERAMIDE HCL 2 MG CAPSULE PO PRN (07:45)
[2018-08-19] MEDS ORDERED: PETROLATUM,WHITE 71 GM JELLY TP PRN (07:45)
[2018-08-19] MEDS ORDERED: MAG HYDROX/AL HYDROX/SIMETH ES 30 ML SUSPENSION UDCUP PO PRN (07:45)
[2018-08-19] MEDS ORDERED: DOCUSATE SODIUM 100 MG CAPSULE PO PRN (07:45)
[2018-08-19] MEDS ORDERED: CloNIDine HCL 0.1 MG TABLET PO PRN (07:45)
[2018-08-19] MEDS ORDERED: ALBUTEROL SULFATE HFA 90 MCG/PUFF 8 GM INHALER IH PRN (07:45)
[2018-08-19] MEDS ORDERED: MAGNESIUM HYDROXIDE SUSPENSION 30 ML UDCUP PO PRN (07:45)
[2018-08-19] MEDS ORDERED: ACETAMINOPHEN 325 MG TABLET PO PRN (07:45)
[2018-08-19 10:11] VITALS: BP 142/99
[2018-08-19] MEDS: IBUPROFEN 400 MG TABLET PO PRN ×2 (10:11→19:16)
[2018-08-19 16:43] VITALS: BP 141/66
[2018-08-19 16:58] LABS: GLUCOMETER DEV NAME(LOC) 3EX 1; GLUCOSE,POINT OF CARE 88 MG/DL (70-110)
[2018-08-19 19:10] VITALS: BP 121/63
[2018-08-20 05:53] LABS: GLUCOMETER DEV NAME(LOC) 3EI C; GLUCOSE,POINT OF CARE 65 MG/DL (70-110)
[2018-08-20 05:53] LABS: GLUCOMETER DEV NAME(LOC) 3EI C; GLUCOSE,POINT OF CARE 79 MG/DL (70-110)
[2018-08-20] MEDS: IBUPROFEN 400 MG TABLET PO PRN ×2 (06:08→16:56)
[2018-08-20] MEDS: FERROUS SULFATE 325 MG EC TABLET PO SCH (07:09)
[2018-08-20] MEDS: LEVOTHYROXINE SODIUM 25 MCG TABLET PO SCH (07:09)
[2018-08-20 07:13] VITALS: BP 104/72
[2018-08-20 07:15] LABS: BASOPHILS % (AUTO) 0.4 % (0.0-2.0); EOSINOPHILS % (AUTO) 1.2 % (1.0-6.0); HEMATOCRIT 43.7 % (41-53); HEMOGLOBIN 14.7 g/dL (13.5-17.5); LYMPHOCYTES # (AUTO) 2.6 K/uL (1.0-4.8); LYMPHOCYTES % (AUTO) 48.2 % (22.0-44.0); MEAN CORPUSCULAR HEMOGLOBIN 33.1 pg (26.0-34.0); MEAN CORPUSCULAR HGB CONC 33.7 G/dL (31.0-37.0); MEAN CORPUSCULAR VOLUME 98 fL (80-100); MONOCYTES # (AUTO) 0.7 K/uL (0.1-1.0); MONOCYTES % (AUTO) 12.4 % (2.0-9.0); NEUTROPHILS # (AUTO) 2.1 K/uL (1.8-7.7); NEUTROPHILS % (AUTO) 37.8 % (40.0-70.0); PLATELET COUNT (AUTO) 179 K/uL (150-450); RED BLOOD CELL COUNT(AUTO) 4.46 MIL/uL (4.50-5.90); RED CELL DISTRIBUTION WIDTH 14.2 % (11.5-14.5)
[2018-08-20 07:37] LABS: ALANINE AMINOTRANSFERASE 47 U/L (12-78); ALBUMIN 3.4 g/dL (3.4-5.0); ALKALINE PHOSPHATASE 51 U/L (46-116); ANION GAP 6 mmol/L (8-16); ASPARTATE AMINOTRANSFERASE 34 U/L (15-37); BILIRUBIN,TOTAL 0.3 mg/dL (0.1-1.0); CALCIUM, TOTAL 8.8 mg/dL (8.8-10.5); CARBON DIOXIDE 31 mmol/L (22-29); CHLORIDE 104 mmol/L (98-107); CHOL/HDL RATIO 2.4 (4.2-7.3); CHOLESTEROL 151 mg/dL (131-200); GLOMERULAR FILTR. RATE CALC > 60 mL/min (>60); GLUCOSE,RANDOM 78 mg/dL (70-110); HDL CHOLESTEROL 63 mg/dL (40-60); LDL CHOL (CALC.) 77 mg/dL (0-130); POTASSIUM 3.8 mmol/L (3.5-5.1); SODIUM SERUM 141 mmol/L (136-145); THYROID STIMULATING HORMONE 3.72 uIU/mL (0.36-3.74); TRIGLYCERIDES 54 mg/dL (15-150); UREA NITROGEN, BLOOD 16 mg/dL (7-18)
[2018-08-20 07:49] LABS: TOTAL PROTEIN, SERUM 6.8 g/dL (6.4-8.2)
[2018-08-20] MEDS ORDERED: OMEPRAZOLE 20 MG CAPSULE PO SCH (09:00)
[2018-08-20] MEDS ORDERED: DIVALPROEX SODIUM 500 MG ER TABLET PO SCH (09:00)
[2018-08-20] MEDS: CHOLECALCIFEROL (VIT D3) 1,000 UNITS TABLET PO SCH (09:59)
[2018-08-20] MEDS: ATORVASTATIN CALCIUM 10 MG TABLET PO SCH (09:59)
[2018-08-20 10:26] VITALS: BP 109/89
[2018-08-20 16:50] VITALS: BP 114/76
[2018-08-20 17:06] VITALS: BP 114/76
[2018-08-20 17:08] LABS: GLUCOMETER DEV NAME(LOC) 3EX 1; GLUCOSE,POINT OF CARE 91 MG/DL (70-110)
[2018-08-20] MEDS ORDERED: OMEPRAZOLE 20 MG CAPSULE PO PRN (19:30)
[2018-08-20] MEDS: QUEtiapine FUMARATE 300 MG TABLET PO SCH (20:36)
[2018-08-20] MEDS: DIVALPROEX SODIUM 500 MG DR TABLET PO SCH (20:36)
[2018-08-21 06:13] LABS: GLUCOMETER DEV NAME(LOC) 3EI C; GLUCOSE,POINT OF CARE 85 MG/DL (70-110)
[2018-08-21] MEDS: LEVOTHYROXINE SODIUM 25 MCG TABLET PO SCH (06:52)
[2018-08-21] MEDS: FERROUS SULFATE 325 MG EC TABLET PO SCH (06:52)
[2018-08-21 07:10] VITALS: BP 125/74
[2018-08-21] MEDS: IBUPROFEN 400 MG TABLET PO PRN (07:10)
[2018-08-21] MEDS: FLUoxetine HCL 20 MG CAPSULE PO SCH (08:08)
[2018-08-21] MEDS: ATORVASTATIN CALCIUM 10 MG TABLET PO SCH (08:08)
[2018-08-21] MEDS: MOMETASONE FUROATE 50 MCG/SPRAY 17 GM NASAL SPRAY NASAL SCH ×2 (08:08→16:34)
[2018-08-21] MEDS: CHOLECALCIFEROL (VIT D3) 1,000 UNITS TABLET PO SCH (08:08)
[2018-08-21] MEDS: FOLIC ACID 1 MG TABLET PO SCH (08:08)
[2018-08-21 08:10] VITALS: BP 98/64
[2018-08-21 16:44] LABS: GLUCOMETER DEV NAME(LOC) 3EX 1; GLUCOSE,POINT OF CARE 85 MG/DL (70-110)
[2018-08-21 18:00] VITALS: BP 143/58
[2018-08-21] MEDS: QUEtiapine FUMARATE 300 MG TABLET PO SCH (21:05)
[2018-08-21] MEDS: DIVALPROEX SODIUM 500 MG DR TABLET PO SCH (21:05)
[2018-08-22 06:24] LABS: GLUCOMETER DEV NAME(LOC) 3EI C; GLUCOSE,POINT OF CARE 71 MG/DL (70-110)
[2018-08-22] MEDS: LEVOTHYROXINE SODIUM 25 MCG TABLET PO SCH (07:03)
[2018-08-22] MEDS: FERROUS SULFATE 325 MG EC TABLET PO SCH (07:03)
[2018-08-22] MEDS: ATORVASTATIN CALCIUM 10 MG TABLET PO SCH (08:17)
[2018-08-22] MEDS: FLUoxetine HCL 20 MG CAPSULE PO SCH (08:17)
[2018-08-22] MEDS: MOMETASONE FUROATE 50 MCG/SPRAY 17 GM NASAL SPRAY NASAL SCH (08:17)
[2018-08-22] MEDS: CHOLECALCIFEROL (VIT D3) 1,000 UNITS TABLET PO SCH (08:17)
[2018-08-22] MEDS: FOLIC ACID 1 MG TABLET PO SCH (08:17)
[2018-08-22 08:30] VITALS: BP 153/76
[2018-08-22] MEDS ORDERED: DIVA-78 PO (10:01)
[2018-08-22 11:38] LABS: GLUCOMETER DEV NAME(LOC) 3EX 1; GLUCOSE,POINT OF CARE 76 MG/DL (70-110)
== END 2018-08-22 16:00 | disposition home or self-care (01) | DRG 885 ==
LOC: EMS 20:45 → 3EX 22:00
PROVIDERS: ADMIT Psychiatry & Neurology Psychiatry; ATTEND Psychiatry & Neurology Psychiatry
DX: F31.9 Bipolar disorder, unspecified (principal); R45.851 Suicidal ideations; R62.50 Unspecified lack of expected normal physiological development in childhood; K21.9 Gastro-esophageal reflux disease without esophagitis; J45.909 Unspecified asthma, uncomplicated; E78.5 Hyperlipidemia, unspecified; E55.9 Vitamin D deficiency, unspecified; E11.9 Type 2 diabetes mellitus without complications; E03.9 Hypothyroidism, unspecified; G40.909 Epilepsy, unspecified, not intractable, without status epilepticus; R74.0 Nonspecific elevation of levels of transaminase and lactic acid dehydrogenase [LDH]; F17.200 Nicotine dependence, unspecified, uncomplicated; D64.9 Anemia, unspecified; K59.09 Other constipation; I10 Essential (primary) hypertension; G47.00 Insomnia, unspecified
CPT/HCPCS: 83036; 84443; G0378; G0480

== ENCOUNTER 2018-09-17 17:03 | Emergency (ER) | payer MEDICARE, OTHER ==
[~2018-09-17] VITALS: Ht 144.8 cm; Wt 63.6 kg
[~2018-09-17 17:03] MED LIST changes: +DIVA-78 PO; -DIVA500T69 PO; +FERR-89 PO; +FOLI1 PO; +MOME17N NASAL; +VITAD1000 PO
[2018-09-17] MEDS ORDERED: INSNOV SQ (17:21)
[2018-09-17 17:29] LABS: GLUCOSE,POINT OF CARE 59 MG/DL (70-110)
[2018-09-17] MEDS ORDERED: HYDROCORTISONE 1% 30 GM OINTMENT TP ONE (17:45)
[2018-09-17] MEDS ORDERED: IBUPROFEN 800 MG TABLET PO ONE (17:45)
[2018-09-17 18:09] LABS: GLUCOSE,POINT OF CARE 80 MG/DL (70-110)
[2018-09-17 19:39] VITALS: BP 118/75
== END 2018-09-17 19:41 | disposition home or self-care (01) ==
LOC: EMS 17:04
DX: S60.222A Contusion of left hand, initial encounter (principal); E11.9 Type 2 diabetes mellitus without complications; J45.909 Unspecified asthma, uncomplicated; F20.9 Schizophrenia, unspecified; Z79.4 Long term (current) use of insulin; W20.8XXA Other cause of strike by thrown, projected or falling object, initial encounter; Y93.E9 Activity, other interior property and clothing maintenance; Y92.89 Other specified places as the place of occurrence of the external cause; Y99.8 Other external cause status

== ENCOUNTER 2018-09-28 17:00 | Emergency (ER) | payer MEDICARE, OTHER ==
[~2018-09-28] VITALS: Ht 162.6 cm; Wt 60.0 kg
[~2018-09-28 17:00] MED LIST changes: +INSNOV SQ
[2018-09-28] MEDS ORDERED: ONDANSETRON HCL 4 MG TABLET PO ONE (18:00)
[2018-09-28] MEDS ORDERED: ONDANSETRON HCL 4 MG/2 ML VIAL IVP ONE (18:15)
[2018-09-28 18:28] LABS: BASOPHILS % (AUTO) 0.5 % (0.0-2.0); EOSINOPHILS % (AUTO) 0.4 % (1.0-6.0); HEMATOCRIT 41.2 % (41-53); HEMOGLOBIN 13.9 g/dL (13.5-17.5); LYMPHOCYTES # (AUTO) 1.6 K/uL (1.0-4.8); LYMPHOCYTES % (AUTO) 26.1 % (22.0-44.0); MEAN CORPUSCULAR HEMOGLOBIN 32.8 pg (26.0-34.0); MEAN CORPUSCULAR HGB CONC 33.6 G/dL (31.0-37.0); MEAN CORPUSCULAR VOLUME 98 fL (80-100); MONOCYTES # (AUTO) 0.6 K/uL (0.1-1.0); MONOCYTES % (AUTO) 9.3 % (2.0-9.0); NEUTROPHILS # (AUTO) 3.9 K/uL (1.8-7.7); NEUTROPHILS % (AUTO) 63.7 % (40.0-70.0); PLATELET COUNT (AUTO) 191 K/uL (150-450); RED BLOOD CELL COUNT(AUTO) 4.23 MIL/uL (4.50-5.90); RED CELL DISTRIBUTION WIDTH 14.3 % (11.5-14.5)
[2018-09-28 18:58] LABS: ANION GAP 8 mmol/L (8-16); CALCIUM, TOTAL 9.2 mg/dL (8.8-10.5); CARBON DIOXIDE 30 mmol/L (22-29); CHLORIDE 108 mmol/L (98-107); CREATININE 1.12 mg/dL (0.60-1.30); GLOMERULAR FILTR. RATE CALC > 60 mL/min (>60); GLUCOSE,RANDOM 74 mg/dL (70-110); POTASSIUM 3.8 mmol/L (3.5-5.1); SODIUM SERUM 146 mmol/L (136-145); UREA NITROGEN, BLOOD 18 mg/dL (7-18)
[2018-09-28 19:04] LABS: ALANINE AMINOTRANSFERASE 29 U/L (12-78); ALBUMIN 3.4 g/dL (3.4-5.0); ALKALINE PHOSPHATASE 61 U/L (46-116); ASPARTATE AMINOTRANSFERASE 23 U/L (15-37); BILIRUBIN,TOTAL 0.2 mg/dL (0.1-1.0); LIPASE 284 U/L (73-393); TOTAL PROTEIN, SERUM 7.1 g/dL (6.4-8.2)
[2018-09-28 20:30] VITALS: BP 121/66
== END 2018-09-28 20:35 | disposition home or self-care (01) ==
LOC: EMS 17:01
DX: R11.2 Nausea with vomiting, unspecified (principal); E11.9 Type 2 diabetes mellitus without complications; J45.909 Unspecified asthma, uncomplicated; F20.9 Schizophrenia, unspecified; Z79.899 Other long term (current) drug therapy
CPT/HCPCS: 80053; 83690; 85025; 96374; 99283; J2405

== ENCOUNTER 2018-12-13 11:28 | Inpatient (IN) | payer MEDICARE, MEDICAID ==
[~2018-12-13] VITALS: Ht 137.2 cm; Wt 69.4 kg
[2018-12-13] MEDS ORDERED: ZOLPIDEM TARTRATE 10 MG TABLET PO PRN (16:45)
[2018-12-13] MEDS ORDERED: HALOPERIDOL 5 MG TABLET PO PRN (16:45)
[2018-12-13 17:18] VITALS: BP 138/83
[2018-12-13] MEDS ORDERED: ACETAMINOPHEN 325 MG TABLET PO PRN ×2 (17:30→18:30)
[2018-12-13] MEDS ORDERED: MAG HYDROX/AL HYDROX/SIMETH ES 30 ML SUSPENSION UDCUP PO PRN ×2 (17:30→18:30)
[2018-12-13] MEDS ORDERED: LOPERAMIDE HCL 2 MG CAPSULE PO PRN ×2 (17:30→18:30)
[2018-12-13] MEDS ORDERED: MAGNESIUM HYDROXIDE SUSPENSION 30 ML UDCUP PO PRN ×2 (17:30→18:30)
[2018-12-13] MEDS ORDERED: CloNIDine HCL 0.1 MG TABLET PO PRN ×2 (17:30→18:30)
[2018-12-13] MEDS ORDERED: GuaiFENesin/D-METHORPHAN [SUGAR-FREE] 200-20MG/10 ML SYRUP UDCUP PO PRN ×2 (17:30→18:30)
[2018-12-13] MEDS ORDERED: PETROLATUM,WHITE 71 GM JELLY TP PRN ×2 (17:30→18:30)
[2018-12-13] MEDS ORDERED: DOCUSATE SODIUM 100 MG CAPSULE PO PRN ×2 (17:30→18:30)
[2018-12-13 17:39] LABS: GLUCOMETER DEV NAME(LOC) BV2S.; GLUCOSE,POINT OF CARE 104 MG/DL (70-110)
[2018-12-13] MEDS ORDERED: IBUPROFEN 400 MG TABLET PO PRN (18:30)
[2018-12-13] MEDS ORDERED: NICOTINE 14 MG/24 HOUR PATCH TD PRN (18:30)
[2018-12-13] MEDS ORDERED: ONDANSETRON HCL 4 MG TABLET PO PRN (18:30)
[2018-12-13] MEDS ORDERED: ALBUTEROL SULFATE HFA 90 MCG/PUFF 8 GM INHALER IH PRN (18:30)
[2018-12-13 19:12] VITALS: BP 128/84
[2018-12-13] MEDS: IBUPROFEN 400 MG TABLET PO PRN (19:12)
[2018-12-14 03:20] VITALS: BP 123/75
[2018-12-14] MEDS: LORazepam 2 MG TABLET PO PRN (07:06)
[2018-12-14] MEDS: LEVOTHYROXINE SODIUM 25 MCG TABLET PO SCH (07:06)
[2018-12-14] MEDS: IBUPROFEN 400 MG TABLET PO PRN (07:07)
[2018-12-14 08:10] VITALS: BP 110/64
[2018-12-14 08:29] LABS: BASOPHILS % (AUTO) 0.2 % (0.0-2.0); EOSINOPHILS % (AUTO) 1.4 % (1.0-6.0); HEMATOCRIT 43.9 % (41-53); HEMOGLOBIN 15.4 g/dL (13.5-17.5); LYMPHOCYTES # (AUTO) 2.5 K/uL (1.0-4.8); LYMPHOCYTES % (AUTO) 56.8 % (22.0-44.0); MEAN CORPUSCULAR HEMOGLOBIN 34.8 pg (26.0-34.0); MEAN CORPUSCULAR HGB CONC 35.2 G/dL (31.0-37.0); MEAN CORPUSCULAR VOLUME 99 fL (80-100); MONOCYTES # (AUTO) 0.4 K/uL (0.1-1.0); MONOCYTES % (AUTO) 8.5 % (2.0-9.0); NEUTROPHILS # (AUTO) 1.5 K/uL (1.8-7.7); NEUTROPHILS % (AUTO) 33.1 % (40.0-70.0); PLATELET COUNT (AUTO) 233 K/uL (150-450); RED BLOOD CELL COUNT(AUTO) 4.44 MIL/uL (4.50-5.90); RED CELL DISTRIBUTION WIDTH 14.9 % (11.5-14.5)
[2018-12-14] MEDS: OMEPRAZOLE 20 MG CAPSULE PO SCH (08:42)
[2018-12-14] MEDS: ATORVASTATIN CALCIUM 10 MG TABLET PO SCH (08:42)
[2018-12-14] MEDS: MOMETASONE FUROATE 50 MCG/SPRAY 17 GM NASAL SPRAY NASAL SCH ×2 (08:42→16:35)
[2018-12-14 09:09] LABS: ALANINE AMINOTRANSFERASE 41 U/L (12-78); ALBUMIN 3.6 g/dL (3.4-5.0); ALKALINE PHOSPHATASE 49 U/L (46-116); ANION GAP 2 mmol/L (8-16); ASPARTATE AMINOTRANSFERASE 52 U/L (15-37); BILIRUBIN,TOTAL 0.3 mg/dL (0.1-1.0); CALCIUM, TOTAL 9.7 mg/dL (8.8-10.5); CARBON DIOXIDE 34 mmol/L (22-29); CHLORIDE 105 mmol/L (98-107); CHOL/HDL RATIO 2.8 (4.2-7.3); CHOLESTEROL 160 mg/dL (131-200); CREATININE 1.05 mg/dL (0.60-1.30); FREE T4 (FREE THYROXINE) 0.67 ng/dL (0.76-1.46); GLOMERULAR FILTR. RATE CALC > 60 mL/min (>60); GLUCOSE,RANDOM 91 mg/dL (70-110); HDL CHOLESTEROL 58 mg/dL (40-60); LDL CHOL (CALC.) 90 mg/dL (0-130); POTASSIUM 4.5 mmol/L (3.5-5.1); SODIUM SERUM 141 mmol/L (136-145); THYROID STIMULATING HORMONE 4.37 uIU/mL (0.36-3.74); TOTAL PROTEIN, SERUM 7.4 g/dL (6.4-8.2); TRIGLYCERIDES 62 mg/dL (15-150); UREA NITROGEN, BLOOD 15 mg/dL (7-18); VALPROIC ACID 31 mcg/mL (50-100)
[2018-12-14 09:13] LABS: HEMOGLOBIN A1C 5.2 % (4.5-6.2)
[2018-12-14] MEDS: FLUoxetine HCL 20 MG CAPSULE PO SCH (12:02)
[2018-12-14 16:15] VITALS: BP 129/75
[2018-12-14] MEDS: QUEtiapine FUMARATE 300 MG TABLET PO SCH (20:22)
[2018-12-15 00:25] VITALS: BP 113/68
[2018-12-15] MEDS: LEVOTHYROXINE SODIUM 25 MCG TABLET PO SCH (07:11)
[2018-12-15] MEDS: MOMETASONE FUROATE 50 MCG/SPRAY 17 GM NASAL SPRAY NASAL SCH ×2 (08:03→16:14)
[2018-12-15] MEDS: FLUoxetine HCL 20 MG CAPSULE PO SCH (08:03)
[2018-12-15] MEDS: ATORVASTATIN CALCIUM 10 MG TABLET PO SCH (08:03)
[2018-12-15] MEDS: OMEPRAZOLE 20 MG CAPSULE PO SCH (08:03)
[2018-12-15 08:53] VITALS: BP 121/76
[2018-12-15 16:19] VITALS: BP 106/68
[2018-12-15] MEDS: QUEtiapine FUMARATE 300 MG TABLET PO SCH (20:16)
[2018-12-16] MEDS: LEVOTHYROXINE SODIUM 50 MCG TABLET PO SCH (06:05)
[2018-12-16] MEDS: OMEPRAZOLE 20 MG CAPSULE PO SCH (08:12)
[2018-12-16] MEDS: MOMETASONE FUROATE 50 MCG/SPRAY 17 GM NASAL SPRAY NASAL SCH ×2 (08:12→16:44)
[2018-12-16] MEDS: ATORVASTATIN CALCIUM 10 MG TABLET PO SCH (08:12)
[2018-12-16] MEDS: FLUoxetine HCL 20 MG CAPSULE PO SCH (08:12)
[2018-12-16 08:27] VITALS: BP 127/80
[2018-12-16] MEDS: LORazepam 2 MG TABLET PO PRN (09:50)
[2018-12-16 16:20] VITALS: BP 104/74
[2018-12-16] MEDS: QUEtiapine FUMARATE 300 MG TABLET PO SCH (20:30)
[2018-12-17 06:09] VITALS: BP 100/60
[2018-12-17] MEDS: LEVOTHYROXINE SODIUM 50 MCG TABLET PO SCH (06:37)
[2018-12-17] MEDS: ATORVASTATIN CALCIUM 10 MG TABLET PO SCH (08:12)
[2018-12-17] MEDS: FLUoxetine HCL 20 MG CAPSULE PO SCH (08:12)
[2018-12-17] MEDS: OMEPRAZOLE 20 MG CAPSULE PO SCH (08:12)
[2018-12-17] MEDS: MOMETASONE FUROATE 50 MCG/SPRAY 17 GM NASAL SPRAY NASAL SCH ×2 (08:13→16:15)
[2018-12-17] MEDS: LORazepam 2 MG TABLET PO PRN ×2 (10:20→16:14)
[2018-12-17 11:41] VITALS: BP 108/75
[2018-12-17 16:12] VITALS: BP 131/60
[2018-12-17] MEDS: QUEtiapine FUMARATE 300 MG TABLET PO SCH (20:20)
[2018-12-18 04:57] VITALS: BP 128/76
[2018-12-18] MEDS: LEVOTHYROXINE SODIUM 50 MCG TABLET PO SCH (06:32)
[2018-12-18 08:13] LABS: BASOPHILS % (AUTO) 0.3 % (0.0-2.0); EOSINOPHILS % (AUTO) 1.5 % (1.0-6.0); HEMATOCRIT 40.5 % (41-53); HEMOGLOBIN 13.5 g/dL (13.5-17.5); LYMPHOCYTES # (AUTO) 3.3 K/uL (1.0-4.8); LYMPHOCYTES % (AUTO) 58.5 % (22.0-44.0); MEAN CORPUSCULAR HEMOGLOBIN 33.1 pg (26.0-34.0); MEAN CORPUSCULAR HGB CONC 33.3 G/dL (31.0-37.0); MEAN CORPUSCULAR VOLUME 100 fL (80-100); MONOCYTES # (AUTO) 0.6 K/uL (0.1-1.0); MONOCYTES % (AUTO) 10.5 % (2.0-9.0); NEUTROPHILS # (AUTO) 1.7 K/uL (1.8-7.7); NEUTROPHILS % (AUTO) 29.2 % (40.0-70.0); PLATELET COUNT (AUTO) 228 K/uL (150-450); RED BLOOD CELL COUNT(AUTO) 4.08 MIL/uL (4.50-5.90); RED CELL DISTRIBUTION WIDTH 14.9 % (11.5-14.5)
[2018-12-18] MEDS: MOMETASONE FUROATE 50 MCG/SPRAY 17 GM NASAL SPRAY NASAL SCH ×2 (08:17→16:38)
[2018-12-18] MEDS: OMEPRAZOLE 20 MG CAPSULE PO SCH (08:17)
[2018-12-18] MEDS: FLUoxetine HCL 20 MG CAPSULE PO SCH (08:17)
[2018-12-18] MEDS: ATORVASTATIN CALCIUM 10 MG TABLET PO SCH (08:17)
[2018-12-18 08:47] VITALS: BP 118/73
[2018-12-18] MEDS ORDERED: LEVO50 PO (10:20)
[2018-12-18] MEDS ORDERED: OMEP20 PO (10:20)
[2018-12-18] MEDS ORDERED: ALBU8HFA IH (10:26)
[2018-12-18 16:13] VITALS: BP 119/74
[2018-12-18] MEDS: QUEtiapine FUMARATE 300 MG TABLET PO SCH (20:34)
[2018-12-19 05:05] VITALS: BP 115/72
[2018-12-19] MEDS: LEVOTHYROXINE SODIUM 50 MCG TABLET PO SCH (06:29)
[2018-12-19] MEDS: ATORVASTATIN CALCIUM 10 MG TABLET PO SCH (08:16)
[2018-12-19] MEDS: OMEPRAZOLE 20 MG CAPSULE PO SCH (08:16)
[2018-12-19] MEDS: MOMETASONE FUROATE 50 MCG/SPRAY 17 GM NASAL SPRAY NASAL SCH (08:16)
[2018-12-19] MEDS: FLUoxetine HCL 20 MG CAPSULE PO SCH (08:16)
[2018-12-19 08:17] VITALS: BP 117/71
[2018-12-19 08:31] LABS: APPEARANCE,URINE CLEAR (CLEAR); BILIRUBIN,URINE NEGATIVE (NEGATIVE); GLUCOSE, URINE (UA) NEGATIVE (NEGATIVE); KETONES,URINE TRACE mg/dL (NEGATIVE); LEUKOCYTE ESTERASE ,URINE NEGATIVE (NEGATIVE); NITRATE,URINE NEGATIVE (NEGATIVE); OCCULT BLOOD,URINE NEGATIVE (NEGATIVE); PH,URINE 5.5 (5.0-8.0); PROTEIN,URINE NEGATIVE (NEGATIVE); UROBILINOGEN,URINE 0.2 mg/dL (<=1.0)
[2018-12-19 08:44] LABS: BACTERIA,URINE None Seen /HPF (None Seen); RBC,URINE None Seen /HPF (0-2); SQUAMOUS EPITHELIAL CELL,UR Rare /LPF (None Seen); WBC,URINE 0-2 /HPF (0-5)
== END 2018-12-19 15:41 | disposition home or self-care (01) | DRG 885 ==
LOC: B2X 16:45
PROVIDERS: ADMIT Psychiatry & Neurology Psychiatry; ATTEND Psychiatry & Neurology Psychiatry
DX: F25.0 Schizoaffective disorder, bipolar type (principal); F79 Unspecified intellectual disabilities; R45.851 Suicidal ideations; D72.819 Decreased white blood cell count, unspecified; E03.9 Hypothyroidism, unspecified; E11.9 Type 2 diabetes mellitus without complications; E55.9 Vitamin D deficiency, unspecified; F19.10 Other psychoactive substance abuse, uncomplicated; E78.5 Hyperlipidemia, unspecified; F41.9 Anxiety disorder, unspecified; I10 Essential (primary) hypertension; R74.0 Nonspecific elevation of levels of transaminase and lactic acid dehydrogenase [LDH]; J45.909 Unspecified asthma, uncomplicated; K21.9 Gastro-esophageal reflux disease without esophagitis; K59.00 Constipation, unspecified; Z59.0 Homelessness; Z91.5 Personal history of self-harm; Z79.899 Other long term (current) drug therapy; Z71.51 Drug abuse counseling and surveillance of drug abuser
CPT/HCPCS: 83036; 84439; 84443

== ENCOUNTER 2019-09-24 18:00 | Emergency (ER) | payer MEDICARE, MEDICAID ==
[~2019-09-24] VITALS: Ht 142.2 cm; Wt 86.4 kg
[~2019-09-24 18:00] MED LIST changes: +ALBU8HFA IH; -DIVA-78 PO; -FERR-89 PO; -FOLI1 PO; -INSNOV SQ; -LEVO25TA9 PO; +LEVO50 PO; +OMEP20 PO; -VITAD1000 PO
[2019-09-24 20:51] LABS: GLUCOSE,POINT OF CARE 104 MG/DL (70-110)
[2019-09-24 21:47] LABS: BASOPHILS % (AUTO) 0.3 % (0.0-2.0); EOSINOPHILS % (AUTO) 1.9 % (1.0-6.0); HEMATOCRIT 42.7 % (41-53); HEMOGLOBIN 14.2 g/dL (13.5-17.5); LYMPHOCYTES # (AUTO) 2.6 K/uL (1.0-4.8); LYMPHOCYTES % (AUTO) 52.4 % (22.0-44.0); MEAN CORPUSCULAR HEMOGLOBIN 31.5 pg (26.0-34.0); MEAN CORPUSCULAR HGB CONC 33.2 G/dL (31.0-37.0); MEAN CORPUSCULAR VOLUME 95 fL (80-100); MONOCYTES # (AUTO) 0.5 K/uL (0.1-1.0); MONOCYTES % (AUTO) 10.7 % (2.0-9.0); NEUTROPHILS # (AUTO) 1.7 K/uL (1.8-7.7); NEUTROPHILS % (AUTO) 34.7 % (40.0-70.0); PLATELET COUNT (AUTO) 222 K/uL (150-450); RED CELL DISTRIBUTION WIDTH 13.7 % (11.5-14.5)
[2019-09-24 21:58] LABS: ANION GAP 5 mmol/L (8-16); CALCIUM, TOTAL 9.3 mg/dL (8.8-10.5); CARBON DIOXIDE 30 mmol/L (22-29); CHLORIDE 104 mmol/L (98-107); CREATININE 1.06 mg/dL (0.60-1.30); GLOMERULAR FILTR. RATE CALC > 60 mL/min (>60); GLUCOSE,RANDOM 89 mg/dL (70-110); POTASSIUM 3.8 mmol/L (3.5-5.1); SODIUM SERUM 139 mmol/L (136-145); UREA NITROGEN, BLOOD 14 mg/dL (7-18)
[2019-09-24 22:03] LABS: ALANINE AMINOTRANSFERASE 52 U/L (12-78); ALBUMIN 3.6 g/dL (3.4-5.0); ALKALINE PHOSPHATASE 45 U/L (46-116); ASPARTATE AMINOTRANSFERASE 33 U/L (15-37); BILIRUBIN,TOTAL 0.2 mg/dL (0.1-1.0); TOTAL PROTEIN, SERUM 7.1 g/dL (6.4-8.2)
[2019-09-24 22:04] LABS: AMPHET/METH SCREEN,URINE NEGATIVE (NEGATIVE); BARBITURATE SCREEN, URINE NEGATIVE (NEGATIVE); BENZODIAZEPINES SCREEN,URINE NEGATIVE (NEGATIVE); CANNABINOID SCREEN,URINE NEGATIVE (NEGATIVE); COCAINE SCREEN,URINE NEGATIVE (NEGATIVE); METHADONE SCREEN, URINE NEGATIVE (NEGATIVE); OPIATE SCREEN,URINE NEGATIVE (NEGATIVE); PHENCYCLIDINE SCREEN,URINE NEGATIVE (NEGATIVE)
[2019-09-24 22:50] VITALS: BP 132/74
== END 2019-09-25 00:21 | disposition home or self-care (01) ==
LOC: EMS 18:05
DX: R45.851 Suicidal ideations (principal); F17.210 Nicotine dependence, cigarettes, uncomplicated; J45.909 Unspecified asthma, uncomplicated; E11.9 Type 2 diabetes mellitus without complications; F20.9 Schizophrenia, unspecified
CPT/HCPCS: 36415; 80053; 80307; 82962; 85025; 99285; G0480

== ENCOUNTER 2020-02-02 13:17 | Emergency (ER) | payer MEDICARE, MEDICAID ==
[~2020-02-02] VITALS: Ht 147.3 cm; Wt 72.7 kg
[2020-02-02 13:59] LABS: GLUCOSE,POINT OF CARE 119 MG/DL (70-110)
[2020-02-02 16:04] VITALS: BP 126/70
== END 2020-02-02 16:59 | disposition home or self-care (01) ==
LOC: EMS 13:18
DX: F41.9 Anxiety disorder, unspecified (principal); F20.9 Schizophrenia, unspecified; F43.9 Reaction to severe stress, unspecified; J45.909 Unspecified asthma, uncomplicated; E11.9 Type 2 diabetes mellitus without complications
CPT/HCPCS: 82948; 93005

== ENCOUNTER 2020-03-16 22:44 | Emergency (ER) | payer MEDICARE, MEDICAID ==
[~2020-03-16] VITALS: Ht 154.9 cm; Wt 90.9 kg
[2020-03-17 00:37] LABS: BASOPHILS % (AUTO) 0.5 % (0.0-2.0); EOSINOPHILS % (AUTO) 1.3 % (1.0-6.0); HEMATOCRIT 43.8 % (41-53); HEMOGLOBIN 14.6 g/dL (13.5-17.5); LYMPHOCYTES % (AUTO) 49.8 % (22.0-44.0); MEAN CORPUSCULAR HGB CONC 33.3 G/dL (31.0-37.0); MEAN CORPUSCULAR VOLUME 93 fL (80-100); MONOCYTES # (AUTO) 0.5 K/uL (0.1-1.0); MONOCYTES % (AUTO) 9.1 % (2.0-9.0); NEUTROPHILS # (AUTO) 2.4 K/uL (1.8-7.7); NEUTROPHILS % (AUTO) 39.3 % (40.0-70.0); PLATELET COUNT (AUTO) 240 K/uL (150-450); RED BLOOD CELL COUNT(AUTO) 4.69 MIL/uL (4.50-5.90); RED CELL DISTRIBUTION WIDTH 14.5 % (11.5-14.5)
[2020-03-17 00:53] LABS: ANION GAP 6 mmol/L (8-16); CALCIUM, TOTAL 9.6 mg/dL (8.8-10.5); CARBON DIOXIDE 31 mmol/L (22-29); CHLORIDE 104 mmol/L (98-107); CREATININE 1.07 mg/dL (0.60-1.30); GLOMERULAR FILTR. RATE CALC > 60 mL/min (>60); GLUCOSE,RANDOM 94 mg/dL (70-110); POTASSIUM 3.8 mmol/L (3.5-5.1); SODIUM SERUM 141 mmol/L (136-145); UREA NITROGEN, BLOOD 15 mg/dL (7-18)
[2020-03-17 00:59] LABS: ALANINE AMINOTRANSFERASE 75 U/L (12-78); ALBUMIN 4.3 g/dL (3.4-5.0); ALKALINE PHOSPHATASE 56 U/L (46-116); ASPARTATE AMINOTRANSFERASE 51 U/L (15-37); BILIRUBIN,TOTAL 0.2 mg/dL (0.1-1.0); TOTAL PROTEIN, SERUM 8.1 g/dL (6.4-8.2)
[2020-03-17 01:45] VITALS: BP 109/73
== END 2020-03-17 04:41 | disposition home or self-care (01) ==
LOC: EMS 22:47
DX: R45.6 Violent behavior (principal); F20.9 Schizophrenia, unspecified; E11.9 Type 2 diabetes mellitus without complications; J45.909 Unspecified asthma, uncomplicated; Z13.89 Encounter for screening for other disorder; Z79.899 Other long term (current) drug therapy
CPT/HCPCS: 80053; 85025; 99284; G0480

== ENCOUNTER 2020-03-28 20:52 | Inpatient (IN) | payer MEDICARE, MEDICAID ==
[~2020-03-28] VITALS: Ht 149.9 cm; Wt 83.6 kg
[2020-03-28 21:22] LABS: BASOPHILS % (AUTO) 0.3 % (0.0-2.0); EOSINOPHILS % (AUTO) 0.8 % (1.0-6.0); HEMATOCRIT 44.2 % (41-53); HEMOGLOBIN 14.5 g/dL (13.5-17.5); LYMPHOCYTES % (AUTO) 41.4 % (22.0-44.0); MEAN CORPUSCULAR HEMOGLOBIN 31.1 pg (26.0-34.0); MEAN CORPUSCULAR HGB CONC 32.9 G/dL (31.0-37.0); MEAN CORPUSCULAR VOLUME 95 fL (80-100); MONOCYTES # (AUTO) 0.4 K/uL (0.1-1.0); MONOCYTES % (AUTO) 8.3 % (2.0-9.0); NEUTROPHILS # (AUTO) 2.4 K/uL (1.8-7.7); NEUTROPHILS % (AUTO) 49.2 % (40.0-70.0); PLATELET COUNT (AUTO) 226 K/uL (150-450); RED BLOOD CELL COUNT(AUTO) 4.67 MIL/uL (4.50-5.90); RED CELL DISTRIBUTION WIDTH 14.6 % (11.5-14.5)
[2020-03-28 21:34] LABS: ANION GAP 10 mmol/L (8-16); CARBON DIOXIDE 25 mmol/L (22-29); CHLORIDE 104 mmol/L (98-107); CREATININE 0.91 mg/dL (0.60-1.30); GLOMERULAR FILTR. RATE CALC > 60 mL/min (>60); GLUCOSE,RANDOM 82 mg/dL (70-110); POTASSIUM 4.2 mmol/L (3.5-5.1); SODIUM SERUM 139 mmol/L (136-145); UREA NITROGEN, BLOOD 14 mg/dL (7-18)
[2020-03-28 21:36] LABS: AMPHET/METH SCREEN,URINE NEGATIVE (NEGATIVE); BARBITURATE SCREEN, URINE NEGATIVE (NEGATIVE); BENZODIAZEPINES SCREEN,URINE NEGATIVE (NEGATIVE); CANNABINOID SCREEN,URINE NEGATIVE (NEGATIVE); COCAINE SCREEN,URINE NEGATIVE (NEGATIVE); METHADONE SCREEN, URINE NEGATIVE (NEGATIVE); OPIATE SCREEN,URINE NEGATIVE (NEGATIVE); PHENCYCLIDINE SCREEN,URINE NEGATIVE (NEGATIVE)
[2020-03-28 21:47] LABS: ALANINE AMINOTRANSFERASE 46 U/L (12-78); ALBUMIN 4.2 g/dL (3.4-5.0); ALKALINE PHOSPHATASE 51 U/L (46-116); ASPARTATE AMINOTRANSFERASE 37 U/L (15-37); BILIRUBIN,TOTAL 0.3 mg/dL (0.1-1.0); TOTAL PROTEIN, SERUM 7.9 g/dL (6.4-8.2)
[2020-03-28] MEDS ORDERED: ZOLPIDEM TARTRATE 10 MG TABLET PO PRN (22:00)
[2020-03-28] MEDS ORDERED: HALOPERIDOL 5 MG TABLET PO PRN (22:00)
[2020-03-29 01:51] VITALS: BP 136/76
[2020-03-29] MEDS ORDERED: PNEUMOCOCCAL VACCINE POLYVALENT 0.5 ML VIAL [PPSV23] IM ONE (03:30)
[2020-03-29 07:54] LABS: CHOL/HDL RATIO 3.3 (4.2-7.3)
[2020-03-29 08:00] VITALS: BP 118/59
[2020-03-29] MEDS ORDERED: MAGNESIUM HYDROXIDE SUSPENSION 30 ML UDCUP PO PRN (08:15)
[2020-03-29] MEDS ORDERED: LOPERAMIDE HCL 2 MG CAPSULE PO PRN (08:15)
[2020-03-29] MEDS ORDERED: IBUPROFEN 400 MG TABLET PO PRN (08:15)
[2020-03-29] MEDS ORDERED: PETROLATUM,WHITE 28 GM JELLY TP PRN (08:15)
[2020-03-29] MEDS ORDERED: CloNIDine HCL 0.1 MG TABLET PO PRN (08:15)
[2020-03-29] MEDS ORDERED: GuaiFENesin/D-METHORPHAN [SUGAR-FREE] 200-20MG/10 ML SYRUP UDCUP PO PRN (08:15)
[2020-03-29] MEDS ORDERED: DOCUSATE SODIUM 100 MG CAPSULE PO PRN (08:15)
[2020-03-29] MEDS ORDERED: MAG HYDROX/AL HYDROX/SIMETH ES 30 ML SUSPENSION UDCUP PO PRN (08:15)
[2020-03-29] MEDS ORDERED: ACETAMINOPHEN 325 MG TABLET PO PRN (08:15)
[2020-03-29] MEDS ORDERED: ONDANSETRON HCL 4 MG TABLET PO PRN (08:15)
[2020-03-29] MEDS ORDERED: NICOTINE 14 MG/24 HOUR PATCH TD PRN (08:15)
[2020-03-29] MEDS ORDERED: ALBUTEROL SULFATE HFA 90 MCG/PUFF 8 GM INHALER IH PRN (08:15)
[2020-03-29 17:33] VITALS: BP 121/69
[2020-03-29] MEDS: LORazepam 2 MG TABLET PO PRN (19:08)
[2020-03-29] MEDS: QUEtiapine FUMARATE 300 MG TABLET PO SCH (20:25)
[2020-03-30 09:19] VITALS: BP 118/85
[2020-03-30] MEDS: FLUoxetine HCL 20 MG CAPSULE PO SCH (12:20)
[2020-03-30 17:02] VITALS: BP 138/77
[2020-03-30] MEDS: QUEtiapine FUMARATE 300 MG TABLET PO SCH (20:25)
[2020-03-30] MEDS: LORazepam 2 MG TABLET PO PRN (22:54)
[2020-03-31] MEDS: FLUoxetine HCL 20 MG CAPSULE PO SCH (08:07)
[2020-03-31 08:55] VITALS: BP 118/69
[2020-03-31 16:21] VITALS: BP 125/90
[2020-03-31] MEDS: QUEtiapine FUMARATE 300 MG TABLET PO SCH (20:24)
[2020-03-31 20:50] VITALS: BP 130/87
[2020-04-01] MEDS: FLUoxetine HCL 20 MG CAPSULE PO SCH (08:22)
[2020-04-01 16:26] VITALS: BP 158/75
[2020-04-01] MEDS: QUEtiapine FUMARATE 300 MG TABLET PO SCH (20:11)
[2020-04-01 22:13] VITALS: BP 144/80
[2020-04-02] MEDS: FLUoxetine HCL 20 MG CAPSULE PO SCH (08:09)
[2020-04-02 08:12] VITALS: BP 106/70
== END 2020-04-02 16:00 | disposition home or self-care (01) | DRG 884 ==
LOC: EMS 20:53 → 3EX 21:51 → UNDOADMIN 21:51 → UNDODISIN 04-02 16:00
PROVIDERS: ADMIT Psychiatry & Neurology Child & Adolescent Psychiatry; ATTEND Psychiatry & Neurology Child & Adolescent Psychiatry
DX: F70 Mild intellectual disabilities (principal); R45.851 Suicidal ideations; F25.1 Schizoaffective disorder, depressive type; K21.9 Gastro-esophageal reflux disease without esophagitis; J45.909 Unspecified asthma, uncomplicated; E78.5 Hyperlipidemia, unspecified; E03.9 Hypothyroidism, unspecified; I95.9 Hypotension, unspecified; E11.9 Type 2 diabetes mellitus without complications; Z91.5 Personal history of self-harm
CPT/HCPCS: 83036; G0378; G0480